=== PATIENT | female | born 1990 | race Caucasian/White ===

== ENCOUNTER 2020-06-09 22:34 | Emergency (ER) | payer OTHER, SELFPAY ==
[2020-06-09 22:44] VITALS: BP 132/76; PULSE 89; RESP 17; TEMP 36.6; O2SAT 99; BMI 31.9
--- NOTE | 2020-06-09 22:46 | HMH.EDGENADL ---
ED Disposition Clinical Impression: Ankle contusion Qualifiers: Encounter type: initial encounter Laterality: left Qualified Code(s): S90.02XA - Contusion of left ankle, initial encounter Disposition: Home, Self-Care Condition on Discharge: Good Instructions: How to Prevent Falls Additional Instructions: Weight-bear as tolerated. Please use crutches over the next several days and remain in Angel wrap. Remove Angel wrap to bathe but then immediately reapply over the next 48 to 72 hours. Use ice, NSAIDs, and rest. Return immediately if any motor or sensory deficits in left ankle/foot, worsening pain, change in skin color in left lower extremity/foot, or other new concerning symptoms prior to following up with your primary care doctor for recheck within several days. Referrals: PCP,No [Primary Care Provider] - - Critical Care Critical Care Time: No Attestation: On , the high probability of a clinically significant, sudden or life threatening deterioration of the following system(s) required my full and direct attention, intervention and personal management. The time I documented below is in addition to time spent performing reported procedures but includes the following listed in this critical care notation. Medical Decision Making - Medical Records Medical records reviewed: Yes: I reviewed the patient's medical records. - Nils Inquiry Pt receiving controlled substance: No Vital Signs: 06/09/20 22:44 Temperature 97.9 F Temperature Source Oral Pulse Rate [Right Brachial] 89 Respiratory Rate 17 Blood Pressure [Right Arm] 132/76 Blood Pressure Mean [Right Arm] 94 Blood Pressure Source [Right Arm] Automatic Cuff Blood Pressure Position [Right Arm] Sitting 02 Sat by Pulse Oximetry 99 Oxygen Delivery Method Room Air Orders (Tests/Meds): ED MEDICATIONS Discontinued Medications Generic Name Dose Route Start Last Admin Trade Name Freq PRN Reason Stop Dose Admin Ibuprofen 600 mg 06/09/20 22:57 06/09/20 22:57 Ibuprofen 600 Mg Tablet PO 06/09/20 22:58 600 mg ONCE ONE Administration ORDERS Category Date Time Status Foot XR left minimum 3 views [XR foot LT min 3V] Stat Exams 06/09/20 22:49 Ordered XR tibia fibula LT 2V Stat Exams 06/09/20 22:49 Ordered Medical Decision Narrative: Patient presents with left lower leg/ankle complaint. She does have some pain on palpation of her left ankle. She is neurovascular intact without any breaks in the skin on arrival. Differential diagnosis does include soft tissue injury versus ankle fracture versus lower leg fracture versus foot fracture. At this time, radiographs indicated to ensure no bony abnormality. X-ray negative for any Maisonneuve type injury, Nguyen fracture, or obvious Lisfranc type injury. I also see no other acute bony abnormalities. At this time, patient's presentation is consistent with soft tissue injury. Patient's ankle Angel wrapped here in the ER and crutches given. Also instructed to use ice, NSAIDs, and rest over the next several days. She agrees. She will return if worsening pain, change in quality/character pain, any motor/sensory deficits in her left foot/ankle, or other new concerning symptoms. Otherwise, she will follow up with her primary care doctor for routine check. Assessment: Left ankle injury status post fall Disposition: Home with follow-up on crutches with Angel wrap General Adult HPI - General Stated complaint: AO fell [id number] possible broken L foot Time Seen by Provider: 06/09/20 22:50 - History of Present Illness HPI narrative: Patient healthy 30-year-old female presenting with left lower leg complaint. Patient states about 45 minutes ago she was walking through a graveyard. She was spooked and accidentally tripped and fell. She believes she turned her ankle and immediately suffered a pain to her left lower leg as well as her left foot. She was able to get up but felt hobbled afterwards and did hav
--- NOTE | 2020-06-09 22:49 | XR_ITS ---
PROCEDURE: XR FOOT LT MIN 3V CLINICAL INDICATION: fall Pain COMPARISON: No exams were available for comparison FINDINGS: There is a nondisplaced transverse fracture involving the base of the 2nd metatarsal. There appears to be normal relationship at the 2nd metatarsal tarsal junction with no widening of the 1st intermetatarsal space. The joint spaces are well-preserved. No significant degenerative/arthritic changes. No erosive changes evident. Other findings:None. IMPRESSION: Nondisplaced fracture base of 2nd metatarsal Dictated by: Sebastian Jauregui MD 06/10/2020 07:04 Sebastian Jauregui MD in [place] 06/10/2020 07:04
--- NOTE | 2020-06-09 22:49 | XR_ITS ---
PROCEDURE: XR TIBIA FIBULA LT 2V CLINICAL INDICATION: fall Pain COMPARISON: No exams were available for comparison FINDINGS: No fracture or dislocation. No lytic or blastic change. There is normal mineralization. The joint spaces are well-preserved. No significant degenerative/arthritic changes. No erosive changes evident. Other findings:None. IMPRESSION: No acute findings. Dictated by: Sebastian Jauregui MD 06/10/2020 07:04 Sebastian Jauregui MD in [place] 06/10/2020 07:04
[2020-06-09 23:24] VITALS: BP 121/70; PULSE 73; RESP 18; TEMP 36.7; O2SAT 98
== END 2020-06-09 23:29 | disposition home or self-care (01) ==
PROVIDERS: Emergency Provider Emergency Medicine
DX: S90.02XA Contusion of left ankle, initial encounter (principal); W01.0XXA Fall on same level from slipping, tripping and stumbling without subsequent striking against object, initial encounter; Y93.01 Activity, walking, marching and hiking; Y92.019 Unspecified place in single-family (private) house as the place of occurrence of the external cause
CPT/HCPCS: 73590; 73630; 99282

== ENCOUNTER 2020-08-27 15:23 | Emergency (ER) | payer OTHER, SELFPAY ==
[2020-08-27 15:39] VITALS: BP 124/89; PULSE 69; RESP 14; TEMP 36.9; O2SAT 99; BMI 31.1
--- NOTE | 2020-08-27 15:52 | HMH.EDUTC ---
[facility] [place] Disposition Clinical Impression: Insect bite Qualifiers: Encounter type: initial encounter Site of insect bite: forearm Laterality: right Qualified Code(s): S50.861A - Insect bite (nonvenomous) of right forearm, initial encounter; W57.XXXA - Bitten or stung by nonvenomous insect and other nonvenomous arthropods, initial encounter Disposition: Home, Self-Care Condition on Discharge: Good Instructions: How to Care for an Insect Bite or Sting, DI for Insect Bites and Stings Additional Instructions: if area worsens or does not improve return follow up with pcp Prescriptions: Sulfamethoxazole/Trimethoprim [Bactrim DS tablet] 1 each PO BID 10 Days #20 tab [email or web address] Referrals: PCP,No [Primary Care Provider] - Time of Disposition: 16:23 Medical Decision Making - Nils Inquiry Pt receiving controlled substance: No Vital Signs: 08/27/20 15:39 Temperature 98.4 F Temperature Source Oral Pulse Rate [Right] 69 Respiratory Rate 14 Blood Pressure [Right Arm] 124/89 Blood Pressure Mean [Right Arm] 100 02 Sat by Pulse Oximetry 99 [facility] [place] HPI - General Chief complaint: Urgent Treatment Center Stated complaint: AO 08/26 spidler bite R Arm Time Seen by Provider: 08/27/20 15:54 Mode of Arrival: Ambulatory Source of Information: Patient Limitations: No Limitations Description of Symptoms (Recalled from Triage Doc. by RN): pt has a spider bite on her R arm and is now having numbness. HEENT Symptoms (Recalled from RN notes): No Resp Symptoms (Recalled from RN notes): No Skin Symptoms (Recalled from RN notes): Yes (R arm numbness around spider bite) MS Symptoms (Recalled from RN notes): No Functional Status (Recalled from RN notes): na - History of Present Illness Provider Complaint: 30 yr old female presents for a spider bite to rt arm. Pt states area is ed swollen and feels numb. Pt states she noticed area last pm - Related Data Previous Rx's Medication Instructions Recorded Sulfamethoxazole/Trimethoprim 1 each PO BID 10 Days #20 tab 08/27/20 [Bactrim DS tablet] Allergies Allergy/AdvReac Type Severity Reaction Status Date / Time No Known Allergies Allergy Verified 08/27/20 15:47 - Worker's Comp Is this a Worker's Comp case?: No [facility] History - Hepatitis A Screen Drug use history?: No High risk sexual behaviors?: No History of sexually transmitted infection?: No Currently employed?: No Childcare worker?: No Do you have indoor plumbing?: Yes Do you have electricity?: Yes Attestation statement:: This patient has been screened for Hepatitis A risk factors. I have reviewed the patient's past medical history: Yes ROS Obtained: Yes Systems reviewed as appropriate & no additional complaints - Constitutional Constitutional: Reports system reviewed and no additional complaints, except as docu, Denies body ache - Eyes Eyes: Reports system reviewed and no additional complaints, except as docu, Denies change in vision - ENT Ears, Nose, Mouth, and Throat: Reports system reviewed and no additional complaints, except as docu, Denies sore throat - Cardiovascular Cardiovascular: Reports system reviewed and no additional complaints, except as docu, Denies chest pain - Respiratory Respiratory: Reports system reviewed and no additional complaints, except as docu, Denies cough - Gastrointestinal Gastrointestingal: Reports: system reviewed and no additional complaints, except as docu. Denies: nausea, vomiting - Genitourinary Female Genitourinary: Reports system reviewed and no additional complaints, except as docu, Denies hematuria - Musculoskeletal Musculoskeletal: Reports system reviewed and no additional complaints, except as docu - Integumentary/Breasts Skin/Breast: Reports system reviewed and no additional complaints, except as docu, Reports as per HPI, Reports wounds - Neurologic Neurologic: Reports system reviewed and no additional complain
[2020-08-27 16:26] VITALS: BP 119/87; PULSE 69; RESP 18; TEMP 36.6
== END 2020-08-27 16:26 | disposition home or self-care (01) ==
PROVIDERS: Emergency Provider Nurse Practitioner Family
DX: S50.861A Insect bite (nonvenomous) of right forearm, initial encounter (principal); W57.XXXA Bitten or stung by nonvenomous insect and other nonvenomous arthropods, initial encounter
CPT/HCPCS: 99202; G0463

== ENCOUNTER 2020-09-17 13:39 | Emergency (ER) | payer OTHER, SELFPAY ==
[2020-09-17 13:39] VITALS: BP 117/82; PULSE 59; RESP 14; TEMP 36.9; O2SAT 97; BMI 31.4
--- NOTE | 2020-09-17 14:03 | HMH.EDUTC ---
[facility] [place] Disposition Clinical Impression: Strep throat Disposition: Home, Self-Care Condition on Discharge: Good Instructions: Strep Throat, DI for Strep Throat Additional Instructions: Drink plenty of fluids. Take tylenol or ibuprofen for pain or fever. Take the medications as directed. Follow up with your regular doctor. GO TO THE ER FOR ANY WORSENING SYMPTOMS Prescriptions: Amoxicillin [Amoxicillin 500mg Tab] 500 mg PO TID 10 Days #30 tab Transmission Status: Received by [facility] Benzonatate [Tessalon Perle 100mg Cap] 100 mg PO TIDP PRN #30 cap PRN Reason: Cough Transmission Status: Received by [facility] Referrals: PCP,No [Primary Care Provider] - Time of Disposition: 14:22 Medical Decision Making - Medical Records Medical records reviewed: No: I reviewed the patient's medical records. - Nils Inquiry Pt receiving controlled substance: No Vital Signs: 09/17/20 13:39 09/17/20 14:25 Temperature 98.5 F 98.5 F Temperature Source Oral Oral Pulse Rate 59 L Pulse Rate [Right] 59 L Respiratory Rate 14 14 Blood Pressure 117/82 Blood Pressure [Right Arm] 117/82 Blood Pressure Mean [Right Arm] 93 02 Sat by Pulse Oximetry 97 - Lab Data Lab results reviewed: Yes: I reviewed the patient's lab results. Lab Results 09/17/20 13:43: Strep Scn Rapid Clinic Positive A Orders (Tests/Meds): ORDERS Category Date Time Status Strep Screen Confirmation Stat Micro 09/17/20 13:43 Received [facility] [place] HPI - General Stated complaint: sore throat, cough Time Seen by Provider: 09/17/20 14:03 Description of Symptoms (Recalled from Triage Doc. by RN): pt c/o sore throat, cough, congestion HEENT Symptoms (Recalled from RN notes): Yes Resp Symptoms (Recalled from RN notes): Yes Skin Symptoms (Recalled from RN notes): No MS Symptoms (Recalled from RN notes): No Functional Status (Recalled from RN notes): wnl - History of Present Illness Provider Complaint: She c/o sore throat for the past 3 days. - Related Data Previous Rx's Medication Instructions Recorded Sulfamethoxazole/Trimethoprim 1 each PO BID 10 Days #20 tab 08/27/20 [Bactrim DS tablet] Amoxicillin [Amoxicillin 500mg Tab] 500 mg PO TID 10 Days #30 tab 09/17/20 Benzonatate [Tessalon Perle 100mg 100 mg PO TIDP PRN #30 cap 09/17/20 Cap] Allergies Allergy/AdvReac Type Severity Reaction Status Date / Time No Known Allergies Allergy Verified 08/27/20 15:47 - Worker's Comp Is this a Worker's Comp case?: No [facility] History - Hepatitis A Screen Drug use history?: No High risk sexual behaviors?: No History of sexually transmitted infection?: No Currently employed?: No Childcare worker?: No Do you have indoor plumbing?: Yes Do you have electricity?: Yes Attestation statement:: This patient has been screened for Hepatitis A risk factors. I have reviewed the patient's past medical history: Yes - Social History Alcohol Intake: never Occupational Status: employed ROS Obtained: Yes All systems reviewed & no additional complaints - Constitutional Constitutional: Reports system reviewed and no additional complaints, except as docu - Eyes Eyes: Reports system reviewed and no additional complaints, except as docu - ENT Ears, Nose, Mouth, and Throat: Reports system reviewed and no additional complaints, except as docu - Respiratory Respiratory: Reports system reviewed and no additional complaints, except as docu - Gastrointestinal Gastrointestingal: Reports: system reviewed and no additional complaints, except as docu Physical Exam - General General appearance: alert, in no apparent distress - Head Head exam: atraumatic, normocephalic, normal inspection - Eye Eye exam: Present: normal appearance, PERRL, EOMI - ENT ENT exam: Present: mucous membranes moist, normal external ear exam - Expanded ENT Exam TM/Canal exam: Bilateral TM: erythema, bulging Mouth exam: Prese
[2020-09-17 14:25] VITALS: BP 117/82; PULSE 59; RESP 14; TEMP 36.9; O2SAT 97
[2020-09-17 14:25] LABS: UTC Strep Screen (Rapid) Positive (Negative)
== END 2020-09-17 14:33 | disposition home or self-care (01) ==
PROVIDERS: Emergency Provider Nurse Practitioner Family
DX: J02.0 Streptococcal pharyngitis (principal)
CPT/HCPCS: 87880; 99202; G0463

== ENCOUNTER 2021-01-03 18:11 | Emergency (ER) | payer OTHER, SELFPAY ==
[2021-01-03 19:23] VITALS: BP 118/79; PULSE 81; RESP 17; TEMP 37.2; O2SAT 98; BMI 31.2
--- NOTE | 2021-01-03 19:29 | HMH.EDUTC ---
[facility] [place] Disposition Clinical Impression: Skin sensation disturbance, Left shoulder tendonitis, Strep throat Left shoulder pain Qualifiers: Chronicity: acute Qualified Code(s): M25.512 - Pain in left shoulder Disposition: Home, Self-Care Condition on Discharge: Good Instructions: Tendinopathy Additional Instructions: Rest the extremity, Elevate the extremity as tolerated while you are resting. Take the medications as directed. Follow up with Dr. Orozco (orthopedics). I put in a referral but you need to call his office and schedule an appointment. Follow up with your regular doctor. GO TO THE ER FOR ANY WORSENING SYMPTOMS Prescriptions: methylPREDNISolone [Medrol] 4 mg PO DIRECTED 6 Days #21 tab.ds.pk Transmission Status: Received by [facility] Azithromycin [Z-Antonio 250mg Tab*] 250 mg PO UD DOSE PK #6 tab Transmission Status: Pending to [facility] Referrals: Provider,Referral, MD [Primary Care Provider] - Forms: Work/School Release Time of Disposition: 19:32 Medical Decision Making - Medical Records Medical records reviewed: No: I reviewed the patient's medical records. - Nils Inquiry Pt receiving controlled substance: No Vital Signs: 01/03/21 19:23 01/03/21 19:31 Temperature 99.0 F 99.0 F Temperature Source Oral Pulse Rate 81 Pulse Rate [Left] 81 Respiratory Rate 17 17 Blood Pressure 118/79 Blood Pressure [Right Arm] 118/79 Blood Pressure Mean [Right Arm] 92 02 Sat by Pulse Oximetry 98 - Lab Data Lab results reviewed: Yes: I reviewed the patient's lab results. Lab Results 01/03/21 19:28: Strep Scn Rapid Clinic Positive A 01/03/21 19:28: Urine Color Yellow, Urine Appearance Clear, Urine pH 5.5, Ur Specific Marshall 1.025, Urine Protein Negative, Urine Glucose (UA) Negative, Urine Ketones Trace, Urine Blood Negative, Urine Nitrate Negative, Urine Bilirubin Negative, Urine Urobilinogen 0.2, Ur Leukocyte Esterase Negative Orders (Tests/Meds): ORDERS Category Date Time Status Covid-19 Nasal PCR ([facility]) Routine Lab 01/03/21 19:10 Received Urine Culture Stat Micro 01/03/21 19:09 Received [facility] [place] HPI - General Stated complaint: pain urinating, cough, arm and neck numbness Time Seen by Provider: 01/03/21 19:30 Mode of Arrival: Ambulatory Source of Information: Patient Limitations: No Limitations Description of Symptoms (Recalled from Triage Doc. by RN): BURNING PAIN IN LEFT NECK AND SHOULDER, CHEST COLD AND COUGH AND BLADDER INFECTION HEENT Symptoms (Recalled from RN notes): No Resp Symptoms (Recalled from RN notes): Yes Skin Symptoms (Recalled from RN notes): No MS Symptoms (Recalled from RN notes): Yes Functional Status (Recalled from RN notes): WNL - History of Present Illness Provider Complaint: She c/o left shoulder pain and intermittent numbness. She denies any injury, but reaching over her head triggers her symptoms. She also c/o burning while urinating for the past 2 days. - Related Data Previous Rx's Medication Instructions Recorded Azithromycin [Z-Antonio 250mg Tab*] 250 mg PO UD DOSE PK #6 tab 01/03/21 methylPREDNISolone [Medrol] 4 mg PO DIRECTED 6 Days #21 01/03/21 tab.ds.pk Allergies Allergy/AdvReac Type Severity Reaction Status Date / Time latex Allergy Verified 01/03/21 19:27 - Worker's Comp Is this a Worker's Comp case?: No [facility] History - Hepatitis A Screen Drug use history?: No High risk sexual behaviors?: No History of sexually transmitted infection?: No Currently employed?: No Childcare worker?: No Do you have indoor plumbing?: Yes Do you have electricity?: Yes Attestation statement:: This patient has been screened for Hepatitis A risk factors. I have reviewed the patient's past medical history: Yes - Social History Alcohol Intake: current Occupational Status: other ROS Obtained: Yes All systems reviewed & no additional complaints - Constitutional Constitutional: Reports chills, Denies
[2021-01-03 19:31] VITALS: BP 118/79; PULSE 81; RESP 17; TEMP 37.2; O2SAT 98
[2021-01-03 20:45] LABS: Apearance,Urine Clear (Clear); Color,Urine Yellow (Yellow); Glucose,Urine (UA) Negative (Negative); PH,Urine 5.5 (5.0-8.5); Protein,Urine Negative (Negative); Specific Gravity, Urine 1.025 (1.005-1.030)
[2021-01-03 20:46] LABS: Bilirubin,Urine Negative (Negative); Blood, Urine Negative (Negative); Ketones,Urine TRACE (Negative); UTC Leukocyte Esterase,Urine Negative (Negative); UTC Nitrate,Urine Negative (Negative); Urobilinogen,Urine 0.2 EU/dl (0.2)
[2021-01-03 20:47] LABS: UTC Strep Screen (Rapid) Positive (Negative)
== END 2021-01-03 19:48 | disposition home or self-care (01) ==
PROVIDERS: Emergency Provider Nurse Practitioner Family
DX: M75.02 Adhesive capsulitis of left shoulder (principal); J02.0 Streptococcal pharyngitis; Z20.822 Contact with and (suspected) exposure to COVID-19
CPT/HCPCS: 81003; 87086; 87880; 99203; G0463; U0003

== ENCOUNTER → 2021-01-19 14:38 | Outpatient (CLI) | payer OTHER, SELFPAY ==
--- NOTE | 2021-01-19 14:42 | XR_ITS ---
PROCEDURE: XR SHOULDER LT MIN 2V CLINICAL INDICATION: left shoulder pain COMPARISON: No exams were available for comparison FINDINGS: No obvious fracture. There is mild prominence of the acromioclavicular joint space. This is of questionable clinical significance. No significant degenerative change. No lytic or blastic change. Other findings:None. IMPRESSION: Mild prominence of the AC joint otherwise negative Dictated by: Sebastian Jauregui MD 01/19/2021 16:20 Sebastian Jauregui MD in [place] 01/19/2021 16:20
== END ==
PROVIDERS: Visit Provider Orthopaedic Surgery
DX: M25.512 Pain in left shoulder (principal)
CPT/HCPCS: 73030

== ENCOUNTER 2021-01-27 10:40 | Emergency (ER) | payer OTHER, SELFPAY ==
[2021-01-27 10:41] VITALS: BP 131/78; PULSE 75; RESP 20; TEMP 36.9; O2SAT 98; BMI 30.7
--- NOTE | 2021-01-27 11:51 | HMH.EDUTC ---
[facility] [place] Disposition Clinical Impression: Viral syndrome, Exposure to COVID-19 virus Disposition: Home, Self-Care Condition on Discharge: Good Instructions: DI for Viral Syndrome, DI for COVID-19 (Suspected or Confirmed ), Preventing the Spread of Coronavirus Discharge Instructions Additional Instructions: Drink plenty of fluids. Take tylenol for pain or fever. Return if you begin to have difficulty breathing. Follow up with your regular doctor. GO TO THE ER FOR ANY WORSENING SYMPTOMS Quarantine until you know the results of your covid-19 test. If it is positive, the health department should call you and give you further instructions about your length of Quarantine and other things. Notify your school or workplace of your results and follow their instructions regarding return to work/school. Prescriptions: Brompheniramine/Pseudoephed/Dm [Bromfed Dm Cough Syrup] 5 ml PO Q6HP PRN #240 ml PRN Reason: Cough Transmission Status: Received by [facility] Ondansetron [Zofran 4mg ODT] 4 mg PO Q8HP PRN #12 tab PRN Reason: Nausea Transmission Status: Received by [facility] Referrals: Provider,Referral, [Primary Care Provider] - Forms: Work/School Release Time of Disposition: 11:54 Medical Decision Making - Medical Records Medical records reviewed: No: I reviewed the patient's medical records. - Nils Inquiry Pt receiving controlled substance: No Vital Signs: 01/27/21 10:41 01/27/21 12:10 Temperature 98.5 F 98.5 F Temperature Source Oral Pulse Rate 75 Pulse Rate [Left Radial] 75 Respiratory Rate 20 20 Blood Pressure 131/78 Blood Pressure [Right Arm] 131/78 Blood Pressure Mean [Right Arm] 95 Blood Pressure Source [Right Arm] Automatic Cuff Blood Pressure Position [Right Arm] Sitting 02 Sat by Pulse Oximetry 98 Oxygen Delivery Method Room Air Room Air Orders (Tests/Meds): ORDERS Category Date Time Status Covid-19 Nasal PCR ([facility]) Routine Lab 01/27/21 11:26 Received [facility] [place] HPI - General Stated complaint: covid test/symptoms Time Seen by Provider: 01/27/21 11:51 Mode of Arrival: Ambulatory Source of Information: Patient Limitations: No Limitations Description of Symptoms (Recalled from Triage Doc. by RN): sore throat, cough, ETIENNE for 2 days HEENT Symptoms (Recalled from RN notes): Yes Resp Symptoms (Recalled from RN notes): Yes (cough) Skin Symptoms (Recalled from RN notes): No MS Symptoms (Recalled from RN notes): No Functional Status (Recalled from RN notes): wnl - History of Present Illness Provider Complaint: She states that for the past 2 days she has had a cough, chest congestion, body aches and she has felt bad. She has not been vaccinated against covid. She denies any sore throat. - Related Data Previous Rx's Medication Instructions Recorded Azithromycin [Z-Antonio 250mg Tab*] 250 mg PO UD DOSE PK #6 tab 01/03/21 methylPREDNISolone [Medrol] 4 mg PO DIRECTED 6 Days #21 01/03/21 tab.ds.pk Brompheniramine/Pseudoephed/Dm 5 ml PO Q6HP PRN #240 ml 01/27/21 [Bromfed Dm Cough Syrup] Ondansetron [Zofran 4mg ODT] 4 mg PO Q8HP PRN #12 tab 01/27/21 Allergies Allergy/AdvReac Type Severity Reaction Status Date / Time latex Allergy Verified 01/03/21 19:27 - Worker's Comp Is this a Worker's Comp case?: No [facility] History - Hepatitis A Screen Drug use history?: No High risk sexual behaviors?: No History of sexually transmitted infection?: No Currently employed?: No Childcare worker?: No Do you have indoor plumbing?: Yes Do you have electricity?: Yes Attestation statement:: This patient has been screened for Hepatitis A risk factors. I have reviewed the patient's past medical history: Yes - Social History Smoking Status: Never smoker Alcohol Intake: never Occupational Status: other ROS Obtained: Yes All systems reviewed & no additional complaints - Constitutional Constitutional: Reports as per HPI - Eyes Eyes
[2021-01-27 12:10] VITALS: BP 131/78; PULSE 75; RESP 20; TEMP 36.9; O2SAT 98
--- NOTE | 2021-01-28 10:05 | PC.NURSE ---
PATIENT NOTIFIED OF POSITIVE COVID TEST AT THIS TIME
== END 2021-01-27 12:10 | disposition home or self-care (01) ==
PROVIDERS: Emergency Provider Nurse Practitioner Family
DX: U07.1 COVID-19 (principal)
CPT/HCPCS: 99202; G0463; U0003

== ENCOUNTER 2021-02-21 19:06 | Emergency (ER) | payer OTHER, SELFPAY ==
[2021-02-21 20:14] VITALS: BP 141/77; PULSE 63; RESP 18; TEMP 37; O2SAT 100; BMI 26.7
--- NOTE | 2021-02-21 21:12 | HMH.EDUTC ---
[facility] [place]ression: Left shoulder tendonitis Disposition: Home, Self-Care Condition on Discharge: Good Instructions: Tendonitis (Alternative Therapy), DI for Tendinitis, Etodolac Additional Instructions: Take medication as prescribed Follow up with your Family Doctor if needed Follow up with Dr Orozco for further treatment and evaluation Follow up with Neurology as scheduled Return if needed Straight to ER if any life threatening symptoms Prescriptions: Etodolac 200 mg PO Q8HP PRN #12 cap PRN Reason: Moderate Pain Transmission Status: Received by [id number] Referrals: Provider,Referral, MD [Primary Care Provider] - As needed Forms: Work/School Release Time of Disposition: 21:21 Medical Decision Making - Nils Inquiry Pt receiving controlled substance: No Nils was queried for this patient: No Vital Signs: 02/21/21 20:14 02/21/21 21:36 Temperature 98.6 F 98.6 F Temperature Source Oral Pulse Rate 63 Pulse Rate [Left] 63 Respiratory Rate 18 18 Blood Pressure 141/77 H Blood Pressure [Right Arm] 141/77 H Blood Pressure Mean [Right Arm] 98 02 Sat by Pulse Oximetry 100 - Lab Data Lab Results 02/21/21 21:10: [facility] Negative Orders (Tests/Meds): ED MEDICATIONS Discontinued Medications Generic Name Dose Route Start Last Admin Trade Name Freq PRN Reason Stop Dose Admin Ketorolac Tromethamine 60 mg 02/21/21 21:20 02/21/21 21:30 Ketorolac 60mg/2ml Vial IM 02/21/21 21:21 60 mg ONCE ONE Administration Methylprednisolone Sodium Succinate 125 mg 02/21/21 21:20 02/21/21 21:29 Methylprednisolone Sod Succ 125mg Vial IM 02/21/21 21:21 125 mg ONCE ONE Administration [facility] [place] - General Stated complaint: plain left shoulder Time Seen by Provider: 02/21/21 21:12 Mode of Arrival: Ambulatory Source of Information: Patient Limitations: No Limitations Description of Symptoms (Recalled from Triage Doc. by RN): pt c/o L shoulder and elbow pain. pt had PT yesterday, shes seeing Dr. Orozco and has a neurology appointment coming up. pt states the pain is not getting any better. HEENT Symptoms (Recalled from RN notes): No Resp Symptoms (Recalled from RN notes): No Skin Symptoms (Recalled from RN notes): No MS Symptoms (Recalled from RN notes): Yes (L shoulder/elbow pain) Functional Status (Recalled from RN notes): na - History of Present Illness Provider Complaint: Patient states that she hurt her shoulder at work awhile back and was seen and referred to Dr Orozco States that seen him and he dx her with tendonitis and bursitis and had her in physical therapy and she is scheduled to see neurology next week States that yesterday at physical therapy she thinks she may have over did it and has been having worsening of pain in arm ever since State that she has pain when she tries to raise her arm and she took Motrin this moring but it didnt help so this evening when it was still hurting she came in to see if there is something she can get to help with the pain - Related Data Previous Rx's Medication Instructions Recorded Etodolac 200 mg PO Q8HP PRN #12 cap 02/21/21 Allergies Allergy/AdvReac Type Severity Reaction Status Date / Time latex Allergy Verified 02/07/21 09:03 - Worker's Comp Is this a Worker's Comp case?: No [facility] History - Hepatitis A Screen Drug use history?: No High risk sexual behaviors?: No History of sexually transmitted infection?: No Currently employed?: No Childcare worker?: No Do you have indoor plumbing?: Yes Do you have electricity?: Yes Attestation statement:: This patient has been screened for Hepatitis A risk factors. I have reviewed the patient's past medical history: Yes Other Surgeries: Yes: No Previous Surgery - Social History Smoking Status: Never smoker Alcohol Intake: never Occupational Status: other ROS Obtained: Yes All systems reviewed & no additional complaints, Yes System
[2021-02-21 21:23] LABS: UTC Pregnancy Test, Urine Negative (Negative)
[2021-02-21 21:36] VITALS: BP 141/77; PULSE 63; RESP 18; TEMP 37
== END 2021-02-21 21:38 | disposition home or self-care (01) ==
PROVIDERS: Emergency Provider Nurse Practitioner
DX: M70.812 Other soft tissue disorders related to use, overuse and pressure, left shoulder (principal)
CPT/HCPCS: 81025; 96372; 99202; G0463

== ENCOUNTER 2021-02-24 10:00 | Outpatient (RCR) | payer OTHER, SELFPAY ==
--- NOTE | 2021-02-09 09:04 | HMH.OTOPEV ---
OT Inpatient Evaluation Rehab OT Outpatient Eval Start: 02/09/21 08:31 Freq: Status: Active Protocol: Document 02/09/21 08:32 MARKELKURTIS (Rec: 02/09/21 09:01 EMILYCIELO [id number]) Electronically Signed By Raegan Allen OT 02/09/21 08:32 Outpatient Therapy Subjective History Subjective History 30 year old female referred to skilled OP OT services for L shoulder pain. Patient verbalize having left shoulder pain for the past 5-6 weeks and has affected her job performance. 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 X-ray completed on revealed no acute findings. Ortho dx patient 1. Chronic left shoulder pain 2. Scapulothoracic bursitis of left shoulder 3. Biceps tendinitis of left shoulder 4. Carpal tunnel syndrome of left wrist Chief Complaint Pain,Weakness Symptom Type Ache,Throb,Tingling Symptoms Relieved By OTC Meds Symptoms Aggravated By Physical Activity Prior Functional Limitations None Current Functional Limitations Reaching,Lifting,Recreation Activity Symptom Description Constant and Continuous Level of pain today (0-10) 4 Pain scale - at its best (0-10) 4 Pain scale - at its worst (0-10) 10 Shoulder/Elbow Eval Shoulder Objective Measurements Shoulder ROM Left Shoulder Abduction Active Range of 90 Motion (degrees) Shoulder Flexion Active Range of Motion 140 (degrees) Query Text: Shoulder External Rotation Active Range 65 of Motion (degrees) Shoulder Internal Rotation Active Range 60 of Motion (degrees) pain with active ROM shoulder exam left standard Shoulder MMT Shoulder Extension Strength Grade 3- Fair- Shoulder Flexion Strength Grade 3- Fair- Shoulder Horizontal Abduction Strength 3- Fair- Grade Infraspinatus/Teres Minor Strength Grade 3- Fair- Shoulder External Rotation Strength 3- Fair- Grade Shoulder Internal Rotation Strength 3- Fair- Grade Elbow Objective Measurements OT Outpatient Assessm
== END 2021-02-24 10:05 | disposition home or self-care (01) ==
LOC: OT 10:00
PROVIDERS: PCP Orthopaedic Surgery; Visit Provider Orthopaedic Surgery
DX: M25.512 Pain in left shoulder (principal); G89.29 Other chronic pain; M75.52 Bursitis of left shoulder; M75.22 Bicipital tendinitis, left shoulder
CPT/HCPCS: 97014; 97035; 97140; 97165; 97530; G0283

== ENCOUNTER 2021-03-19 07:24 | Emergency (ER) | payer OTHER, SELFPAY ==
--- NOTE | 2021-03-19 07:23 | ECG_ITS ---
APPROVED REPORT Exam: Resting ECG HR:90 bpm ECG Measurements Heart Rate 90 AXES DE 150 P 74 QRSd 84 QRS 68 QT 348 T 52 QTc 425 Conclusion Normal sinus rhythm Normal ECG Electronically signed by : Isra Claudio MD 03/19/2021 20:30:05
[2021-03-19 07:25] VITALS: BP 126/90; PULSE 98; RESP 16; TEMP 36.8; O2SAT 98; BMI 28.7
--- NOTE | 2021-03-19 07:27 | XR_ITS ---
PROCEDURE INFORMATION: Exam: XR Chest Exam date and time: 03/19/2021 7:27 AM Age: 30 years old Clinical indication: Pain; Chest pressure; Additional info: Chest pain, has nipple rings can not remove TECHNIQUE: Imaging protocol: XR of the chest. Views: 2 views. COMPARISON: CR XR SHOULDER LT MIN 2V 01/19/2021 2:44 PM FINDINGS: Lungs: No focal airspace disease. Pleural spaces: Unremarkable. No pleural effusion. No pneumothorax. Heart/Mediastinum: Cardiomediastinal silhouette is within normal limits. Bones/joints: Unremarkable. IMPRESSION: No acute cardiopulmonary abnormality.
[2021-03-19 07:42] LABS: Basophils % 0.6 % (0.1-2.0); Eosinophils # 0.1 K/mm3 (0.0-0.4); Eosinophils % 0.9 % (0.1-12.0); Hematocrit 36.2 % (37.0-47.0); Hemoglobin 11.4 g/dL (12.2-16.2); Lymphocytes # 1.2 K/mm3 (0.7-4.5); Mean Corpuscular HGB Conc 31.5 g/dL (31.8-35.4); Mean Corpuscular Hemoglobin 25.7 pg (27.0-31.2); Mean Corpuscular Volume 81.8 fl (81-99); Mean Platelet Volume 8.9 fl (7.4-10.4); Monocytes # 0.2 K/mm3 (0.1-1.0); Monocytes % 3.6 % (1.7-9.3); Neutrophils # 3.8 K/mm3 (1.8-7.8); Neutrophils % 72.9 % (37.0-80.0); Platelet Count 512 K/mm3 (142-424); Red Blood Count 4.42 M/mm3 (4.20-5.40); Red Cell Distribution Width 14.8 % (11.5-17.5); White Blood Count 5.3 K/mm3 (4.8-10.8)
[2021-03-19 07:47] LABS: Chloride 109 mmol/L (98-107); Sodium 146 mmol/L (136-145)
[2021-03-19 07:48] LABS: Potassium 3.8 mmoL/L (3.5-5.1)
[2021-03-19 07:50] LABS: Blood Urea Nitrogen 5 mg/dl (7-17); Creatinine Clearance Estimated 172 mL/min (50-200); Estimated Glomerular Filt Rate 144 ml/min (>60); GFR (African American) 174 ML/MIN (>60); HCG Qualitative, Serum Negative (Negative)
[2021-03-19 07:51] LABS: Anion Gap 17.8 mEq/L (5-15); Calcium 9.8 mg/dl (8.4-10.2); Carbon Dioxide 23 mmol/L (22.0-30.0); Glucose 103 mg/dl (74-100)
[2021-03-19 08:05] LABS: Troponin I < 0.01 ng/ml (0.00-0.034)
--- NOTE | 2021-03-19 08:18 | HMH.EDCP ---
ED Disposition Clinical Impression: Atypical chest pain Disposition: Home, Self-Care Condition on Discharge: Good Instructions: DI for Atypical Chest Pain Additional Instructions: You were evaluated in the emergency department today for chest pain, and there is no need for further emergent evaluation at this time. Exact cause of symptoms is unclear, may be related to anxiety but I do recommend follow-up with your PCP in the next 3 to 5 days for monitoring of any persistent symptoms and coordination of ongoing care needs. Return to the emergency department without hesitation with any new or worsening symptoms. Referrals: Provider,Referral, [Primary Care Provider] - - Critical Care Critical Care Time: No Attestation: On 03/19/21, the high probability of a clinically significant, sudden or life threatening deterioration of the following system(s) required my full and direct attention, intervention and personal management. The time I documented below is in addition to time spent performing reported procedures but includes the following listed in this critical care notation. Medical Decision Making - Nils Inquiry Pt receiving controlled substance: No Vital Signs: 03/19/21 07:25 Temperature 98.2 F Temperature Source Oral Pulse Rate [Radial] 98 H Respiratory Rate 16 Blood Pressure [Right Arm] 126/90 Blood Pressure Mean [Right Arm] 102 Blood Pressure Position [Right Arm] Sitting 02 Sat by Pulse Oximetry 98 Oxygen Delivery Method Room Air - Lab Data Lab Results 03/19/21 07:30: WBC 5.3, RBC 4.42, Hgb 11.4 L, Hct 36.2 L, MCV 81.8, MCH 25.7 L, MCHC 31.5 L, RDW 14.8, Plt Count 512 H, MPV 8.9, Neut % (Auto) 72.9, Lymph % (Auto) 22.0, [place] % (Auto) 3.6, Eos % (Auto) 0.9, Baso % (Auto) 0.6, Neut # (Auto) 3.8, Lymph # (Auto) 1.2, [place] # (Auto) 0.2, Eos # (Auto) 0.1, Baso # (Auto) 0.0 03/19/21 07:30: Sodium 146 H, Potassium 3.8, Chloride 109 H, Carbon Dioxide 23, Anion Gap 17.8 H, BUN 5 L, Creatinine 0.50 L, Estimated Creat Clear 172, Estimated GFR 144, Est GFR ( Amer) 174, Glucose 103 H, Calcium 9.8, Troponin I < 0.01 03/19/21 07:30: Serum HCG, Qual Negative Result diagrams: 03/19/21 07:30 03/19/21 07:30 Orders (Tests/Meds): ED MEDICATIONS Discontinued Medications Generic Name Dose Route Start Last Admin Trade Name Anderson PRN Reason Stop Dose Admin Aspirin 324 mg 03/19/21 07:27 03/19/21 08:01 Aspirin 81mg Chewable Tablet PO 03/19/21 07:28 324 mg ONCE ONE Administration ORDERS Category Date Time Status Troponin I Q3H Lab 03/19/21 10:30 Ordered Troponin I Q3H Lab 03/19/21 13:30 Ordered Medical Decision Narrative: In summary, the patient is a 30-year-old female with a past medical history of anxiety and prediabetes who presents for evaluation of atypical chest pain. She is in no acute distress, afebrile and hemodynamically stable, not in appearance. Physical exam demonstrates an anxious but comfortable appearing female with normal cardiopulmonary exam, soft nontender abdomen, normal neurologic exam, remainder physical exam within normal limits. Differential diagnosis includes but is not limited to acute coronary syndrome, pneumothorax, electrolyte abnormality, pulmonary embolism. Patient is low risk by Wells score for pulmonary embolism, and PERC negative so no further testing for pulmonary embolism is required at this time. Will obtain basic laboratory analysis as well as troponin, chest x-ray and reassess clinically. Reassessment: Patient continues to be in no acute distress and hemodynamically stable. Timeline of symptom onset was reviewed with the patient, and she is clear that her symptoms began greater than 3 hours prior to arrival at this emergency department. Initial troponin is undetectable and laboratory analysis demonstrates mild anemia, mild hyponatremia but is otherwise unremarkable and nonactionable. These results were communicated with the patient. It was ex
[2021-03-19 08:35] VITALS: BP 123/77; PULSE 77; RESP 16; TEMP 36.6; O2SAT 98
[2021-03-19 08:40] VITALS: BP 126/90; PULSE 98; RESP 16; TEMP 36.8; O2SAT 98
== END 2021-03-19 08:41 | disposition home or self-care (01) ==
PROVIDERS: Emergency Provider Emergency Medicine
DX: R07.89 Other chest pain (principal); R06.02 Shortness of breath; R11.0 Nausea; Z91.040 Latex allergy status
CPT/HCPCS: 71046; 80048; 84484; 84703; 85025; 93005; 99283

== ENCOUNTER → 2021-04-13 16:46 | Outpatient (CLI) | payer OTHER, SELFPAY ==
--- NOTE | 2021-04-13 16:46 | MR_ITS ---
PROCEDURE INFORMATION: Exam: MR Left Upper Extremity Joint Without Contrast; Shoulder Exam date and time: 04/13/2021 4:46 PM Age: 31 years old Clinical indication: Pain; Shoulder; Left; Additional info: Left shoulder pain, evaluate for rotator cuff tear. Numbness and tingling lt shoulder [id number]. No injury or trauma. Weakness in arm. TECHNIQUE: Imaging protocol: MR of the Left upper extremity without contrast. Exam focused on the shoulder. COMPARISON: CR XR SHOULDER LT MIN 2V 01/19/2021 2:44 PM FINDINGS: Limitations: Motion artifact. Bones and cartilage: Mild edema involves the clavicular head. The acromioclavicular joint is appropriately aligned. There is no acute fracture or dislocation. No aggressive bone lesions are present. Joint spaces: A normal amount of fluid is present in the glenohumeral joint. Glenoid labrum: Unremarkable. No evidence of tear. Supraspinatus tendon: Unremarkable. No evidence of tear. Infraspinatus tendon: Unremarkable. No evidence of tear. Subscapularis tendon: Unremarkable. No evidence of tear. Teres minor tendon: Unremarkable. No evidence of tear. Tendon of biceps brachii: Unremarkable. No evidence of tear. Glenohumeral ligaments: Unremarkable. Muscles: The rotator cuff musculature demonstrates no significant edema or atrophy. Soft tissues: Mild soft tissue edema surrounds the acromioclavicular joint. IMPRESSION: 1. Mild edema involving the clavicular head and mild soft tissue edema surrounding the appropriately aligned acromioclavicular joint of uncertain clinical significance. 2. No rotator cuff tear.
== END ==
PROVIDERS: Visit Provider Orthopaedic Surgery
DX: M25.512 Pain in left shoulder (principal); G89.29 Other chronic pain
CPT/HCPCS: 73221

== ENCOUNTER → 2021-05-23 18:16 | Outpatient (CLI) | payer OTHER, SELFPAY ==
[2021-05-23 20:05] LABS: Anion Gap 15.3 mEq/L (5-15); Blood Urea Nitrogen 10 mg/dl (7-17); Calcium 9.3 mg/dl (8.4-10.2); Carbon Dioxide 24 mmol/L (22.0-30.0); Chloride 102 mmol/L (98-107); Estimated Glomerular Filt Rate 116 ml/min (>60); GFR (African American) 140 ML/MIN (>60); Glucose 81 mg/dl (74-100); Potassium 4.3 mmoL/L (3.5-5.1); Sodium 137 mmol/L (136-145)
[2021-05-23 21:44] LABS: Hemoglobin A1C 5.5 % (4.0-6.0)
== END ==
PROVIDERS: Visit Provider Family Medicine
DX: R73.03 Prediabetes (principal)
CPT/HCPCS: 80048; 83036

== ENCOUNTER → 2021-06-13 11:30 | Outpatient (CLI) | payer OTHER, SELFPAY | PROVIDERS: PCP Family Medicine; Visit Provider Nurse Practitioner | DX: Z20.822 Contact with and (suspected) exposure to COVID-19 (principal) | CPT/HCPCS: C9803; U0003; U0005 ==

== ENCOUNTER 2021-06-21 15:24 | Emergency (ER) | payer OTHER, SELFPAY ==
[2021-06-21 15:25] VITALS: BP 110/75; PULSE 65; RESP 18; TEMP 36.8; O2SAT 100; BMI 32.9
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
[2021-06-21 17:46] VITALS: BP 122/61; PULSE 63; RESP 20; TEMP 36.8; O2SAT 100
== END 2021-06-21 17:46 | disposition home or self-care (01) ==
PROVIDERS: Emergency Provider Emergency Medicine; PCP Family Medicine
DX: S02.2XXA Fracture of nasal bones, initial encounter for closed fracture (principal); W22.8XXA Striking against or struck by other objects, initial encounter; Y92.89 Other specified places as the place of occurrence of the external cause; Y99.8 Other external cause status; F41.8 Other specified anxiety disorders; M79.7 Fibromyalgia
CPT/HCPCS: 70450; 70486; 72125; 99282

== ENCOUNTER 2021-08-17 12:23 | Emergency (ER) | payer OTHER, SELFPAY ==
[2021-08-17 14:00] VITALS: BP 113/70; PULSE 71; RESP 18; TEMP 36.8; O2SAT 98; BMI 26.4
[2021-08-17 14:31] VITALS: BP 113/70; PULSE 71; RESP 18; TEMP 36.8; O2SAT 98
[2021-08-17 14:42] LABS: Strep Scrn Group A (Rapid) Positive (Negative)
--- NOTE | 2021-08-17 15:06 | HMH.EDUTC ---
[facility] [place]: Strep [place] Disposition: Home, Self-Care Condition on Discharge: Good Instructions: DI for Strep Throat, Strep Throat, Amoxicillin Additional Instructions: *Monitor Temp, Over the counter Motrin or Tylenol as directed/as needed Tylenol every 4 hours and Motrin every 6 hours (as long as your family doctor has told you that you can take it) for fever or pain. and straight to ER if unable to lower temp less than 101.0 after medication given *Warm salt water gargles may help to soothe the throat *Throat Lozenges *Warm fluids like tea with honey may help to soothe the throat *Sleep elevated *Humidifier/Vaporizer *If you did not take Penicillin shot or was unable to, start taking antibiotic immediately and make sure that you take it for the FULL length of time although you should start to feel better in 24-48 hours *change toothbrush and toothpaste 24-48 hours after starting to take antibiotics so you do not reinfect yourself Monitor Temp. Tylenol and/or Ibuprofen as needed. ER if fever is no less than 101 despite alternating Tylenol and Ibuprofen * Encourage fluids, water, Gatorade, powerade, pedialyte if /toddler/or child *Cold fluids, popsicles and ice cream may feel good on his throat Follow up IMMEDIATELY for new or worsening symptoms or no Noticeable improvement over the next 48-72 hours. 911 for difficulty breathing or swallowing Prescriptions: Amoxicillin [Amoxicillin 500mg Cap] 500 mg PO BID 10 Days #20 cap Transmission Status: Pending to [id number] Referrals: Chai Ely MD [Primary Care Provider] - As needed Forms: Work/School Release Time of Disposition: 15:08 Medical Decision Making - Nils Inquiry Pt receiving controlled substance: No Nils was queried for this patient: No Vital Signs: 08/17/21 14:00 08/17/21 14:31 Temperature 98.3 F 98.3 F Temperature Source Oral Pulse Rate 71 Pulse Rate [Left Brachial] 71 Respiratory Rate 18 18 Blood Pressure 113/70 Blood Pressure [Left Arm] 113/70 Blood Pressure Mean [Left Arm] 84 Blood Pressure Source [Left Arm] Automatic Cuff Blood Pressure Position [Left Arm] Sitting 02 Sat by Pulse Oximetry 98 Oxygen Delivery Method Room Air - Lab Data Lab results reviewed: Yes: I reviewed the patient's lab results. Lab Results 08/17/21 14:00: Group A Strep Rapid Positive A [facility] [place] - General Stated complaint: cough, congestion, sore throat Time Seen by Provider: 08/17/21 15:06 Mode of Arrival: Ambulatory Source of Information: Patient Limitations: No Limitations Description of Symptoms (Recalled from Triage Doc. by RN): PATIENT C/O SORE THROAT, COUGH AND CONGESTION SINCE YESTERDAY HEENT Symptoms (Recalled from RN notes): Yes Resp Symptoms (Recalled from RN notes): No Skin Symptoms (Recalled from RN notes): No MS Symptoms (Recalled from RN notes): No Functional Status (Recalled from RN notes): WNL - History of Present Illness Provider Complaint: Patient states that her girls has been sick and having similar symptoms State sthat she has been having sore throat, cough, and nasal congestion for the last couple of days but worse this morning so she came in to get checked for sterp throat - Related Data Home Medications Medication Instructions Recorded Confirmed Lurasidone HCl [Latuda] 20 mg PO DAILY 08/17/21 08/17/21 Sertraline HCl [Zoloft] 50 mg PO DAILY 08/17/21 08/17/21 Previous Rx's Medication Instructions Recorded buspirone 15 mg tablet 15 mg PO TID PRN #90 tab 05/23/21 Amoxicillin [Amoxicillin 500mg 500 mg PO BID 10 Days #20 cap 08/17/21 Cap] Allergies Allergy/AdvReac Type Severity Reaction Status Date / Time latex Allergy Verified 07/07/21 15:53 - Worker's Comp Is this a Worker's Comp case?: No [facility] History - Hepatitis A Screen Drug use history?: No High risk sexual behaviors?: No History of sexually transmitted infection?: No Kaila
== END 2021-08-17 15:15 | disposition home or self-care (01) ==
PROVIDERS: Emergency Provider Nurse Practitioner; PCP Family Medicine
DX: J02.0 Streptococcal pharyngitis (principal); B95.0 Streptococcus, group A, as the cause of diseases classified elsewhere; F32.A Depression, unspecified; F41.9 Anxiety disorder, unspecified; Z91.040 Latex allergy status; Z82.49 Family history of ischemic heart disease and other diseases of the circulatory system; Z83.3 Family history of diabetes mellitus; Z80.9 Family history of malignant neoplasm, unspecified
CPT/HCPCS: 87430; 99213; G0463

== ENCOUNTER 2022-01-16 20:05 | Emergency (ER) | payer OTHER, SELFPAY ==
[2022-01-16 20:06] VITALS: BP 114/75; PULSE 72; RESP 18; O2SAT 98; BMI 29.8
--- NOTE | 2022-01-16 21:00 | CT_ITS ---
PROCEDURE INFORMATION: Exam: CT Abdomen And Pelvis With Contrast Exam date and time: 01/16/2022 9:38 PM Age: 31 years old Clinical indication: Abdominal pain; Additional info: Back pain, pelvic pain TECHNIQUE: Imaging protocol: Computed tomography of the abdomen and pelvis with contrast. Radiation optimization: All CT scans at this facility use at least one of these dose optimization techniques: automated exposure control; mA and/or kV adjustment per patient size (includes targeted exams where dose is matched to clinical indication); or iterative reconstruction. Contrast material: ISOVUE; Contrast volume: 75 ml; Contrast route: IV; COMPARISON: CR XR CHEST 2V 03/19/2021 7:27 AM FINDINGS: Liver: Normal. No mass. Gallbladder and bile ducts: Normal. No calcified stones. No ductal dilation. Pancreas: Normal. No ductal dilation. Spleen: Normal. No splenomegaly. Adrenal glands: Normal. No mass. Kidneys and ureters: Normal. No hydronephrosis. Stomach and bowel: Unremarkable. No obstruction. No mucosal thickening. Appendix: No evidence of appendicitis. Intraperitoneal space: Unremarkable. No free air. No significant fluid collection. Vasculature: Unremarkable. No abdominal aortic aneurysm. Lymph nodes: Unremarkable. No enlarged lymph nodes. Urinary bladder: Unremarkable as visualized. Reproductive: Bilateral Essure devices. Bones/joints: Unremarkable. No acute fracture. Soft tissues: Unremarkable. IMPRESSION: No acute findings.
[2022-01-16 21:19] LABS: Microscopic, Urine URINE MICROSCOPIC (MICROSCOPIC)
[2022-01-16 21:24] LABS: Bilirubin,Urine Negative (Negative); Blood, Urine 3+ (Negative); Color,Urine YELLOW (Yellow); Glucose,Urine (UA) Negative (Negative); Ketones,Urine Negative (Negative); Leukocyte Esterase,Urine 2+ (Negative); Nitrate,Urine POSITIVE (Negative); PH,Urine 5.5 (5.0-8.5); Protein,Urine Negative (Negative); Urobilinogen,Urine 0.2 EU/dl (0.2)
[2022-01-16 21:24] LABS: Basophils # 0.1 K/mm3 (0-0.2); Eosinophils # 0.3 K/mm3 (0.0-0.4); Eosinophils % 5.3 % (0.1-12.0); Hematocrit 32.8 % (37.0-47.0); Hemoglobin 10.6 g/dL (12.2-16.2); Lymphocytes # 1.7 K/mm3 (0.7-4.5); Lymphocytes % 28.7 % (10-50); Mean Corpuscular HGB Conc 32.2 g/dL (31.8-35.4); Mean Corpuscular Hemoglobin 26.2 pg (27.0-31.2); Mean Corpuscular Volume 81.5 fl (81-99); Mean Platelet Volume 8.4 fl (7.4-10.4); Monocytes # 0.3 K/mm3 (0.1-1.0); Monocytes % 4.7 % (1.7-9.3); Neutrophils # 3.6 K/mm3 (1.8-7.8); Neutrophils % 60.3 % (37.0-80.0); Platelet Count 478 K/mm3 (142-424); Red Blood Count 4.02 M/mm3 (4.20-5.40); Red Cell Distribution Width 15.9 % (11.5-17.5)
[2022-01-16 21:27] LABS: Urine Pregnancy, HCG Qual. Negative (Negative)
[2022-01-16 21:33] LABS: Alanine Aminotransferase 25 U/L (12-78); Albumin Level 4.4 g/dl (3.5-5.0); Albumin/Globulin Ratio 1.4 (1.1-1.8); Alkaline Phosphatase 69 U/L (38-126); Anion Gap 11.9 mEq/L (5-15); Aspartate Amino Transferase 27 U/L (14-36); Blood Urea Nitrogen 10 mg/dl (7-17); Calcium 9.6 mg/dl (8.4-10.2); Carbon Dioxide 28 mmol/L (22.0-30.0); Chloride 103 mmol/L (98-107); Creatinine Clearance Estimated 131 mL/min (50-200); Estimated Glomerular Filt Rate 97 ml/min (>60); GFR (African American) 117 ML/MIN (>60); Globulin 3.2 g/dL (1.3-3.2); Glucose 87 mg/dl (74-100); Potassium 3.9 mmoL/L (3.5-5.1); Sodium 139 mmol/L (136-145); Total Protein,Serum 7.6 g/dl (6.3-8.2)
[2022-01-16 21:38] LABS: C-Reactive Protein 0.6 mg/L (0-4)
[2022-01-16 21:49] LABS: Bilirubin,Total < 0.1 mg/dl (0.2-1.3); Erythrocyte Sedimentation Rate 15 mm/hr (0-20)
[2022-01-16 21:50] LABS: Appearance,Urine Slightly Cloudy (Clear)
[2022-01-16 21:51] LABS: Procalcitonin 0.066 ng/mL (0.0-2.0)
[2022-01-16 21:52] LABS: Bacteria,Urine 4+ /lpf
[2022-01-16 22:25] VITALS: BP 116/72; PULSE 75; RESP 17; TEMP 36.7; O2SAT 98
--- NOTE | 2022-01-16 22:52 | HMH.EDNVD ---
ED Disposition Clinical Impression: Urinary tract infection Qualifiers: Urinary tract infection type: site unspecified Hematuria presence: without hematuria Qualified Code(s): N39.0 - Urinary tract infection, site not specified Disposition: Home, Self-Care Condition on Discharge: Good Instructions: DI for Urinary Tract Infection (UTI) Additional Instructions: use meds and see pcp for follow up and urine culture Prescriptions: Cefdinir [Omnicef 300mg Capsule] 300 mg PO BID #14 cap Transmission Status: Pending to [id number] Referrals: Chai Ely MD [Primary Care Provider] - - Critical Care Critical Care Time: No Attestation: On 01/16/22, the high probability of a clinically significant, sudden or life threatening deterioration of the following system(s) required my full and direct attention, intervention and personal management. The time I documented below is in addition to time spent performing reported procedures but includes the following listed in this critical care notation. Medical Decision Making - Medical Records Medical records reviewed: Yes: I reviewed the patient's medical records. - Nils Inquiry Pt receiving controlled substance: No Vital Signs: 01/16/22 20:06 01/16/22 22:25 Temperature 98.0 F Temperature Source Oral Pulse Rate 75 Pulse Rate [Right] 72 Respiratory Rate 18 17 Blood Pressure 116/72 Blood Pressure [Right Arm] 114/75 Blood Pressure Mean [Right Arm] 88 Blood Pressure Source [Right Arm] Automatic Cuff 02 Sat by Pulse Oximetry 98 Oxygen Delivery Method Room Air Room Air - Lab Data Lab results reviewed: Yes: I reviewed the patient's lab results. Lab Results 01/16/22 20:30: Urine Color Yellow, Urine Appearance Slightly cloudy, Urine pH 5.5, Ur Specific [place] 1.020, Urine Protein Negative, Urine Glucose (UA) Negative, Urine Ketones Negative, Urine Blood 3+, Urine Nitrate Positive, Urine Bilirubin Negative, Urine Urobilinogen 0.2, Ur Leukocyte Esterase 2+ A, Urine RBC 5-10, Urine WBC 5-10, Ur Squamous Epith Cells 3-5, Urine Bacteria 4+ 01/16/22 20:30: Urine HCG, Qual Negative 01/16/22 21:10: WBC 6.0, RBC 4.02 L, Hgb 10.6 L, Hct 32.8 L, MCV 81.5, MCH 26.2 L, MCHC 32.2, RDW 15.9, Plt Count 478 H, MPV 8.4, Neut % (Auto) 60.3, Lymph % (Auto) 28.7, [place] % (Auto) 4.7, Eos % (Auto) 5.3, Baso % (Auto) 1.0, Neut # (Auto) 3.6, Lymph # (Auto) 1.7, [place] # (Auto) 0.3, Eos # (Auto) 0.3, Baso # (Auto) 0.1, ESR 15 01/16/22 21:10: Sodium 139, Potassium 3.9, Chloride 103, Carbon Dioxide 28, Anion Gap 11.9, BUN 10, Creatinine 0.70, Estimated Creat Clear 131, Estimated GFR 97, Est GFR ( Amer) 117, Glucose 87, Calcium 9.6, Total Bilirubin < 0.1 L, AST 27, ALT 25, Alkaline Phosphatase 69, C-Reactive Protein 0.6, Total Protein 7.6, Albumin 4.4, Globulin 3.2, Albumin/Globulin Ratio 1.4, Procalcitonin 0.066 01/16/22 21:10: Lactate 1.0 Result diagrams: 01/16/22 21:10 01/16/22 21:10 Orders (Tests/Meds): ED MEDICATIONS Generic Name Dose Route Start Last Admin Trade Name Freq PRN Reason Stop Dose Admin Sodium Chloride 1,000 mls @ 999 mls/hr 01/16/22 21:15 01/16/22 21:14 Sod Chlor 0.9% 1000ml Bag IV 01/16/22 22:15 999 mls/hr .Q1H1M MARIAM Administration Ceftriaxone Sodium 1 gm/ 50 mls @ 100 mls/hr 01/16/22 22:00 01/16/22 22:10 Sodium Chloride IV 01/30/22 21:59 100 mls/hr Q24H MARIAM Administration Discontinued Medications Generic Name Dose Route Start Last Admin Trade Name Freq PRN Reason Stop Dose Admin Iopamidol 75 ml 01/16/22 21:47 01/16/22 21:48 Iopamidol-370 (76%);100ml Bottle IV 01/16/22 21:48 75 ml ONCE ONE Administration Ketorolac Tromethamine 30 mg 01/16/22 21:02 01/16/22 21:31 Ketorolac 30mg/Ml Vial IV 01/16/22 21:03 30 mg ONCE ONE Administration Ondansetron HCl 4 mg 01/16/22 21:02 01/16/22 21:31 Ondansetron 4mg/2ml Vial IV 01/16/22 21:03 4 mg ONCE ONE Administration Sodium Chloride 10 ml
== END 2022-01-16 22:57 | disposition home or self-care (01) ==
PROVIDERS: Emergency Provider Emergency Medicine; PCP Family Medicine
DX: N39.0 Urinary tract infection, site not specified (principal); Z79.899 Other long term (current) drug therapy; F41.9 Anxiety disorder, unspecified; F32.A Depression, unspecified
CPT/HCPCS: 74177; 80053; 81001; 81025; 83605; 84145; 85025; 85651; 86140; 87040; 87086; 87088; 87186; 96365; 96367; 96375; 99284; J0696; J2405; Q9967

== ENCOUNTER → 2022-12-26 09:19 | Outpatient (CLI) | payer OTHER, SELFPAY ==
[2022-12-26 17:56] LABS: Basophils % 0.4 % (0.1-2.0); Eosinophils # 0.3 K/mm3 (0.0-0.4); Eosinophils % 7.4 % (0.1-12.0); Hematocrit 33.9 % (37.0-47.0); Hemoglobin 10.3 g/dL (12.2-16.2); Lymphocytes # 1.2 K/mm3 (0.7-4.5); Lymphocytes % 32.6 % (10-50); Mean Corpuscular HGB Conc 30.3 g/dL (31.8-35.4); Mean Corpuscular Hemoglobin 22.7 pg (27.0-31.2); Mean Platelet Volume 9.5 fl (7.4-10.4); Monocytes # 0.2 K/mm3 (0.1-1.0); Monocytes % 4.6 % (1.7-9.3); Neutrophils % 54.9 % (37.0-80.0); Platelet Count 485 K/mm3 (142-424); Red Blood Count 4.52 M/mm3 (4.20-5.40); Red Cell Distribution Width 16.9 % (11.5-17.5); White Blood Count 3.6 K/mm3 (4.8-10.8)
[2022-12-26 17:59] LABS: Alanine Aminotransferase 26 U/L (12-78); Albumin Level 4.3 g/dl (3.5-5.0); Albumin/Globulin Ratio 1.5 (1.1-1.8); Alkaline Phosphatase 65 U/L (38-126); Anion Gap 15.5 mEq/L (5-15); Aspartate Amino Transferase 30 U/L (14-36); Bilirubin,Total 0.2 mg/dl (0.2-1.3); Blood Urea Nitrogen 7 mg/dl (7-17); Carbon Dioxide 22 mmol/L (22.0-30.0); Chloride 108 mmol/L (98-107); Cholesterol 168 mg/dl (140-200); Estimated Glomerular Filt Rate 115 ml/min (>60); GFR (African American) 139 ML/MIN (>60); Globulin 2.9 g/dL (1.3-3.2); Glucose 73 mg/dl (74-100); HDL Cholesterol 24 mg/dl (40-60); Potassium 4.5 mmoL/L (3.5-5.1); Sodium 141 mmol/L (136-145); Total Protein,Serum 7.2 g/dl (6.3-8.2); Triglycerides 101 mg/dl (30-150); VLDL Cholesterol 20 mg/dL (0-40)
[2022-12-26 18:09] LABS: Direct LDL Cholesterol 110.91 mg/dL (100-129)
[2022-12-26 18:16] LABS: 25-OH Vitamin D, Total 35.1 ng/mL (30-100)
[2022-12-26 18:29] LABS: Thyroid Stimulating Hormone 0.44 uIU/mL (0.465-4.68)
[2022-12-28 11:39] LABS: HIV Screen 4th Generation wRfx Non Reactive (Non Reactive)
[2023-01-11 08:39] LABS: Hep A Ab, Total Negative; Hep B Core Ab, Total Negative; Hep B Surface Ab, Qual Non Reactive; Hepatitis B Surface Antigen Negative; Hepatitis C Antibody Non Reactive
== END ==
PROVIDERS: PCP Nurse Practitioner Family; Visit Provider Nurse Practitioner Family
DX: Z00.00 Encounter for general adult medical examination without abnormal findings (principal); F41.9 Anxiety disorder, unspecified; F43.10 Post-traumatic stress disorder, unspecified; E55.9 Vitamin D deficiency, unspecified; Z13.29 Encounter for screening for other suspected endocrine disorder; Z11.59 Encounter for screening for other viral diseases; Z13.220 Encounter for screening for lipoid disorders; Z79.899 Other long term (current) drug therapy
CPT/HCPCS: 80053; 80061; 82306; 84443; 85025; 86703; 86704; 86706; 86708; 87340; 87380; 87522; G0432

== ENCOUNTER 2023-01-13 19:31 | Emergency (ER) | payer OTHER, SELFPAY ==
[2023-01-13 19:33] VITALS: BP 118/74; PULSE 65; RESP 16; TEMP 36.8; O2SAT 100; BMI 28.7
[2023-01-13 20:17] LABS: Strep Scrn Group A (Rapid) Positive (Negative)
[2023-01-13 20:31] LABS: Influenza A, PCR Not Detected (NotDetected); Influenza B, PCR Not Detected (NotDetected)
--- NOTE | 2023-01-13 20:37 | ECG_ITS ---
APPROVED REPORT Exam: Resting ECG HR:58 bpm ECG Measurements Heart Rate 58 AXES VA 181 P 61 QRSd 96 QRS 73 QT 405 T 48 QTc 401 Conclusion SINUS BRADYCARDIA BORDERLINE ECG UNCONFIRMED REPORT Electronically signed by : Isra Claudio MD 01/15/2023 19:46:49
[2023-01-13 20:40] VITALS: BP 112/70; PULSE 61; O2SAT 100
--- NOTE | 2023-01-13 20:42 | XR_ITS ---
PROCEDURE INFORMATION: Exam: XR Chest Exam date and time: 01/13/2023 9:15 PM Age: 32 years old Clinical indication: Cough; Additional info: Congestion TECHNIQUE: Imaging protocol: Radiologic exam of the chest. Views: 1 view. COMPARISON: CR XR CHEST 2V 03/19/2021 7:27 AM FINDINGS: Lungs: Unremarkable. No consolidation. Pleural spaces: Unremarkable. No pleural effusion. No pneumothorax. Heart/Mediastinum: Unremarkable. No cardiomegaly. Bones/joints: Unremarkable. IMPRESSION: No acute pulmonary findings.
--- NOTE | 2023-01-13 20:45 | HMH.EDGENADL ---
Discharge Plan Disposition Patient Disposition: Home, Self-Care Condition: Fair Prescriptions Prescriptions: New penicillin V potassium 500 mg tablet 500 mg PO BID Qty: 20 0RF No Action fluticasone propionate [Flonase Allergy Relief] 50 mcg/actuation spray,suspension 1 spray intranasal DAILY Qty: 16 2RF Rx Instructions: administer into each nostril buspirone 15 mg tablet 15 mg PO TID PRN (Reason: anxiety) Qty: 90 3RF cetirizine [Zyrtec] 10 mg tablet 10 mg PO DAILY Qty: 30 2RF lurasidone 20 mg tablet 20 mg PO DAILY Qty: 90 2RF Rx Instructions: must administer with food (at least 350 calories) sertraline 50 mg tablet 50 mg PO DAILY Qty: 90 3RF Referrals Follow up/Referrals: Frank Bennett APRN [Primary Care Provider] - See instructions Activity Restrictions/Add. Instructions Additional Instructions/Restrictions: At this time is felt you are safe to be discharged home. If new or worsening symptoms please do not hesitate to return the emergency department. Please take medication as prescribed. Please quarantine at home per CDC guidelines. Clinical Impressions Clinical Impression: COVID-19, Strep pharyngitis Discharge ED Provider: Rahul Rose General Adult HPI General Chief complaint: Upper Respiratory Infection Stated complaint: body aches, SOA, feels off Time Seen by Provider: 01/13/23 20:23 Mode of Arrival: Ambulatory Source of Information: Patient Limitations: No Limitations Description of Symptoms (Recalled from ER Triage Doc. by RN): pt reports 4 days of ETIENNE, cough, chest congestion and n/v, reports boyfriends kids have strep History of Present Illness HPI narrative: Patient is a 32-year-old female no pertinent past medical history presents emergency department for evaluation of headache, sore throat cough, chest congestion over the last 4 days. Pain is moderate in intensity, refractory to uifb-crx-[id number] cold preparations. Headache is generalized. Has soreness from cough, denies true chest pain, no other acute complaints at this time Related Data Previous Rx's Medication Instructions Recorded buspirone 15 mg tablet 15 mg PO TID PRN anxiety #90 tabs 10/04/22 fluticasone propionate 50 1 spray intranasal DAILY #16 grams 11/21/22 mcg/actuation nasal spray,suspension (Flonase Allergy Relief) cetirizine 10 mg tablet (Zyrtec) 10 mg PO DAILY #30 tabs 12/26/22 lurasidone 20 mg tablet 20 mg PO DAILY Depression #90 tabs 12/26/22 sertraline 50 mg tablet 50 mg PO DAILY Depression #90 tabs 12/26/22 penicillin V potassium 500 mg 500 mg PO BID #20 tabs 01/13/23 tablet Allergies Allergy/AdvReac Type Severity Reaction Status Date / Time latex Allergy Verified 12/26/22 08:37 [facility] Disclaimer: The information contained in this section may have been updated after the patient was seen, as this information can be updated by other users. Social History Smoking Status: Never smoker second hand exposure: No alcohol intake: never current occupational status: other Travel in the last 8 weeks: None ROS Obtained: Yes Systems reviewed as appropriate & no additional complaints except as documented Physical Exam General General appearance: alert and in no apparent distress Head Head exam: atraumatic and normocephalic Eye Eye exam: Present PERRL and EOMI ENT ENT exam: Present mucous membranes moist and other (Erythematous posterior oropharynx.) Neck Neck exam: Present normal inspection Chest Chest inspection: Present normal inspection and symmetric chest wall rise Respiratory Respiratory exam: Present other (Coarse breath sounds bilaterally); Absent respiratory distress Cardiovascular Cardiovascular exam: Present regular rate and normal rhythm Abdominal Exam Abdominal exam: Present soft; Absent tenderness Extremities Exam Extremities exam: Present normal inspection Neurological Ex
[2023-01-13 20:57] LABS: Coronavirus 19, PCR Detected (NotDetected)
[2023-01-13 21:00] VITALS: BP 125/72; PULSE 63; O2SAT 99
[2023-01-13 21:50] VITALS: BP 124/74; PULSE 61; RESP 16; TEMP 36.8; O2SAT 99
== END 2023-01-13 21:51 | disposition home or self-care (01) ==
PROVIDERS: Emergency Provider Emergency Medicine; PCP Nurse Practitioner Family
DX: U07.1 COVID-19 (principal); J02.0 Streptococcal pharyngitis; R51.9 Headache, unspecified; R06.02 Shortness of breath
CPT/HCPCS: 71045; 87430; 87636; 93005; 99285

== ENCOUNTER → 2023-03-05 10:10 | Outpatient (CLI) | payer OTHER, SELFPAY ==
[2023-03-05 12:56] LABS: Coronavirus 19, PCR Not Detected (NotDetected); Influenza A, PCR Not Detected (NotDetected); Influenza B, PCR Not Detected (NotDetected)
== END ==
PROVIDERS: PCP Emergency Medicine; Visit Provider Emergency Medicine
DX: R52 Pain, unspecified (principal)
CPT/HCPCS: 87636

== ENCOUNTER → 2023-05-02 09:13 | Outpatient (CLI) | payer OTHER, SELFPAY | PROVIDERS: PCP Student in an Organized Health Care Education/Training Program; Visit Provider Student in an Organized Health Care Education/Training Program | DX: Z20.822 Contact with and (suspected) exposure to COVID-19 (principal) | CPT/HCPCS: 87635 ==

== ENCOUNTER 2023-06-05 18:26 | Outpatient (CLI) | payer OTHER, SELFPAY ==
[2023-06-05 18:41] LABS: Adenovirus,PCR Not Detected (NotDetected); Coronavirus 19, PCR Not Detected (NotDetected); Coronavirus 229E Not Detected (NotDetected); Coronavirus NL63 Not Detected (NotDetected); Coronavirus OC43 Not Detected (NotDetected); Coronovirus HKU1,PCR Not Detected (NotDetected); Human Metapneumovirus Not Detected (NotDetected); Influenza A, PCR Not Detected (NotDetected); Influenza AH1, 2009 Not Detected (NotDetected); Influenza AH1, PCR Not Detected (NotDetected); Influenza AH3,PCR Not Detected (NotDetected); Influenza B, PCR Not Detected (NotDetected); Parainfluenza 1, PCR Not Detected (NotDetected); Parainfluenza 2, PCR Not Detected (NotDetected); Parainfluenza 3, PCR Not Detected (NotDetected); Parainfluenza 4, PCR Not Detected (NotDetected); Rhinovirus/Enterovirus Not Detected (NotDetected)
[2023-06-05 23:35] LABS: Respiratory Syncytial Virus Detected (NotDetected)
== END 2023-06-05 23:59 ==
LOC: LAB.DROPOF 18:27
PROVIDERS: PCP Nurse Practitioner Family; Visit Provider Nurse Practitioner Family
DX: J02.9 Acute pharyngitis, unspecified (principal); B97.4 Respiratory syncytial virus as the cause of diseases classified elsewhere
CPT/HCPCS: 87070; 87632; 87635

== ENCOUNTER 2023-07-18 12:14 | Emergency (ER) | payer OTHER, SELFPAY ==
[2023-07-18 12:22] VITALS: BP 136/86; PULSE 77; RESP 18; TEMP 36.7; O2SAT 100; BMI 27.3
--- NOTE | 2023-07-18 12:37 | XR_ITS ---
FINAL REPORT CLINICAL HISTORY: pain top of L foot, h/o fracture in past COMPARISON: 06/09/2020 FINDINGS: LEFT FOOT Three views of the left foot demonstrate no acute fracture or dislocation. The visualized joint spaces are normally aligned. There is soft tissue edema over the dorsum of the foot. IMPRESSION: Soft tissue edema with no acute bony abnormality. Reviewed, Interpreted and Dictated by Trell Timmons MD Transcribed by Cinthya Martin Authenticated and [facility]
[2023-07-18] MEDS: ACETAMINOPHEN 500MG TAB 1000 MG PO (12:46)
--- NOTE | 2023-07-18 13:03 | PC.NURSE ---
rounded on pt, updated about still waiting on xray results, no needs at this time
[2023-07-18 13:04] VITALS: BP 94/67; PULSE 65; O2SAT 100
[2023-07-18 13:30] VITALS: BP 114/60; PULSE 70; O2SAT 99
[2023-07-18 13:58] VITALS: BP 98/62; PULSE 67; O2SAT 94
--- NOTE | 2023-07-18 14:06 | HMH.EDGENADL ---
Discharge Plan Disposition Patient Disposition: Home, Self-Care Condition: Good Chief Complaint: Extremity Injury, Lower Prescriptions Prescriptions: No Action fluticasone propionate [Flonase Allergy Relief] 50 mcg/actuation spray,suspension 1 spray intranasal DAILY Qty: 16 2RF Rx Instructions: administer into each nostril [id number]-[id number] [Bromfed DM] 2-30-10 mg/5 mL syrup 5 ml PO Q4-6H PRN (Reason: cough) Qty: 118 0RF amoxicillin 500 mg tablet 500 mg PO BID 10 Days Qty: 20 0RF buspirone 15 mg tablet 15 mg PO TID PRN (Reason: anxiety) Qty: 90 3RF cetirizine [Zyrtec] 10 mg tablet 10 mg PO DAILY Qty: 30 2RF lurasidone 20 mg tablet 20 mg PO DAILY Qty: 90 2RF Rx Instructions: must administer with food (at least 350 calories) sertraline 50 mg tablet 50 mg PO DAILY Qty: 90 3RF miconazole nitrate 2 % cream 1 appful vaginal HS 7 Days Qty: 45 0RF Referrals Follow up/Referrals: Frank Bennett APRN [Primary Care Provider] - See instructions Activity Restrictions/Add. Instructions Additional Instructions/Restrictions: You were evaluated in the emergency department today. Take Tylenol and ibuprofen at home as needed for pain. Keep your foot elevated to reduce swelling. Follow-up outpatient with orthopedics if your pain persist. Return to the emergency department for new or worsening symptoms. Clinical Impressions Clinical Impression: Acute pain of left foot, Edema of left foot Instructions Patient Instructions: DI for Foot Sprain, DI for Foot Pain Discharge ED Provider: Mara Martin General Adult HPI General Chief complaint: Extremity Injury, Lower Stated complaint: top of foot pain Time Seen by Provider: 07/18/23 12:29 Mode of Arrival: Ambulatory Source of Information: Patient Limitations: No Limitations Description of Symptoms (Recalled from ER Triage Doc. by RN): Patient reports left foot pain and swelling. Patient reports she thinks she rebroke an old fracture from 3 years go. Patient reports she can bear some weight but it is very painful. History of Present Illness HPI narrative: This patient is a 33-year-old female who reports a history of fracture of her first metatarsal of her left foot 3 years ago and reinjury 1 year ago presented to the emergency department for evaluation with concern for pain. She states that she is not sure what she may have done, but she is now having pain, swelling, and issues with bearing weight on her left foot. She took ibuprofen at home with some relief, but the pain has been persistent. No other concerns noted at this time. Related Data Previous Rx's Medication Instructions Recorded buspirone 15 mg tablet 15 mg PO TID PRN anxiety #90 tabs 10/04/22 fluticasone propionate 50 1 spray intranasal DAILY #16 grams 11/21/22 mcg/actuation nasal spray,suspension (Flonase Allergy Relief) cetirizine 10 mg tablet (Zyrtec) 10 mg PO DAILY #30 tabs 12/26/22 lurasidone 20 mg tablet 20 mg PO DAILY Depression #90 tabs 12/26/22 sertraline 50 mg tablet 50 mg PO DAILY Depression #90 tabs 12/26/22 miconazole nitrate 2 % vaginal 1 appful vaginal HS 7 days #45 05/02/23 cream grams amoxicillin 500 mg tablet 500 mg PO BID 10 days #20 tabs 06/05/23 uzhagarudozglht-jpradupbgcucujh-LW 5 ml PO Q4-6H PRN cough #118 mL 06/05/23 2 mg-30 mg-10 mg/5 mL oral syrup (Bromfed DM) Allergies Allergy/AdvReac Type Severity Reaction Status Date / Time latex Allergy Verified 07/18/23 12:28 [facility] Disclaimer: The information contained in this section may have been updated after the patient was seen, as this information can be updated by other users. Medical History Ankle contusion Anxiety Atypical chest pain Bipolar affect, depressed Bronchitis Cervicalgia Encounter for hepatitis C virus screening test for high risk patient Exposure to COVID-19 virus Family history of diabetes mellitus Impacted cerumen of both ears Insect bite Left shoulder pain Left shoulder tendonitis Nasal septum fracture Obesity (BMI 30.0-34.9) Patient left without being seen Post-COVID chronic cough PTSD (post-traumatic stress disorder) Sinusitis, acute, maxillary Skin sensation disturbance Strep throat Urinary tract infection Viral syndrome Surgical History No significant past surgical history Family History Other Diabetes Social History Smoking Status: Current every day smoker second hand exposure: No alcohol intake: never current occupational status: other Travel in the last 8 weeks: None ROS Obtained: Yes All systems reviewed & no additional complaints except as documented Physical Exam General General appearance: alert and in no apparent distress Head Head exam: atraumatic and normocephalic Eye Eye exam: Present normal appearance, PERRL and EOMI ENT ENT exam: Present normal exam, normal oropharynx, mucous membranes moist and normal external ear exam Neck Neck exam: Present normal inspection, full ROM and trachea midline; Absent tenderness Chest Chest inspection: Present normal inspection and symmetric chest wall rise; Absent tenderness Respiratory Respiratory exam: Present normal lung sounds bilaterally; Absent respiratory distress, wheezes, stridor or accessory muscle use Cardiovascular Cardiovascular exam: Present regular rate and normal rhythm Abdominal Exam Abdominal exam: Present soft; Absent distention, tenderness or guarding Extremities Exam Extremities exam: Present full ROM, tenderness, normal capillary refill, edema and other (Tenderness to palpation of the dorsomedial aspect of the left foot with mild soft tissue edema. No surrounding erythema, warmth, lesions, or other concerns. Intact range of motion. Neurovascularly intact distally.) Back Exam Back exam: Present normal inspection and full ROM; Absent tenderness Neurological Exam Neurological exam: Present alert, oriented X3, CN II-XII intact and normal gait; Absent motor sensory deficit Psychiatric Psychiatric exam: Present normal affect and normal mood Skin Skin exam: Present warm and dry Medical Decision Making Medical Records Medical records reviewed: Yes I reviewed the patient's medical records. Nils Inquiry Pt receiving controlled substance: No Vital Signs: 07/18/23 12:22 07/18/23 13:04 07/18/23 13:30 Temperature 98.1 F Temperature Source Oral Pulse Rate 65 70 Pulse Rate [Right Brachial] 77 Respiratory Rate 18 Blood Pressure 94/67 L 114/60 Blood Pressure [Right Arm] 136/86 Blood Pressure Mean [Right Arm] 102 Blood Pressure Source [Right Arm] Automatic Cuff Blood Pressure Position [Right Arm] Sitting 02 Sat by Pulse Oximetry 100 100 99 Oxygen Delivery Method Room Air Room Air Lab Data Lab results reviewed: Yes I reviewed the patient's lab results. Orders (Tests/Meds): ED MEDICATIONS Discontinued Medications Generic Name Dose Route Start Last Admin Trade Name Anderson PRN Reason Stop Dose Admin Acetaminophen 1,000 mg 07/18/23 12:37 07/18/23 12:46 Acetaminophen 500mg Tab PO 07/18/23 12:38 1,000 mg ONCE ONE Administration ORDERS Category Date Time Status XR foot LT min 3V Stat Exams 07/18/23 12:37 Taken Medical Decision Narrative: In summary, this patient is a 33-year-old female presenting to the Emergency Department for evaluation of left foot pain. Differential diagnoses considered include but are not limited to fracture, contusion, strain/sprain. Ruling out the most morbid conditions drove assessment. On exam, the patient is well-appearing. She has mild soft tissue swelling at the dorsomedial aspect of the left foot without overlying skin changes. Intact range of motion, and neurovascularly intact. Workup included x-rays of left foot. She was given oral Tylenol.. I independently interpreted x-ray prior to the radiologist read and noted no acute fracture. Please see their read for final interpretation. At this time, feel patient most likely has musculoskeletal strain/sprain. Feel that she is appropriate for discharge with instructions for supportive management and close follow-up as an outpatient if her pain persist. She was given strict return precautions and was discharged in stable condition after all questions were answered. Critical Care Critical Care Time Critical Care Time: No
[2023-07-18 14:25] VITALS: BP 104/69; PULSE 75; RESP 18; TEMP 36.7; O2SAT 98
--- NOTE | 2023-07-20 22:37 | PC.NURSE ---
chart accessed for ortho paperwork
== END 2023-07-18 14:27 | disposition home or self-care (01) ==
PROVIDERS: Emergency Provider Emergency Medicine; PCP Nurse Practitioner Family
DX: M79.672 Pain in left foot (principal); R60.9 Edema, unspecified; F17.200 Nicotine dependence, unspecified, uncomplicated
CPT/HCPCS: 73630; 99283

== ENCOUNTER 2023-08-19 19:06 | Outpatient (CLI) | payer OTHER, SELFPAY | END 2023-08-19 23:59 | LOC: LAB.DROPOF 19:07 | PROVIDERS: PCP Student in an Organized Health Care Education/Training Program; Visit Provider Student in an Organized Health Care Education/Training Program | DX: J02.9 Acute pharyngitis, unspecified (principal); R10.9 Unspecified abdominal pain; N30.01 Acute cystitis with hematuria; R05.9 Cough, unspecified; B95.7 Other staphylococcus as the cause of diseases classified elsewhere; Z20.828 Contact with and (suspected) exposure to other viral communicable diseases | CPT/HCPCS: 87086 ==

== ENCOUNTER 2023-12-08 20:05 | Emergency (ER) | payer OTHER, SELFPAY ==
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
[2023-12-08 20:15] VITALS: BP 120/85; PULSE 67; RESP 16; TEMP 36.8; O2SAT 100; BMI 27.9
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
[2023-12-08] MEDS: ACETAMINOPHEN 500MG TAB 1000 MG PO (20:39)
[2023-12-08] MEDS: IBUPROFEN 400 MG TABLET 800 MG PO (20:39)
--- NOTE | 2023-12-08 20:41 | PC.NURSE ---
Patient requested to remove pulse oximetry and blood pressure monitoring at this time.
[2023-12-08 21:23] VITALS: BP 134/72; PULSE 75; RESP 19; TEMP 36.8; O2SAT 98
== END 2023-12-08 21:24 | disposition home or self-care (01) ==
PROVIDERS: Emergency Provider Emergency Medicine; PCP Student in an Organized Health Care Education/Training Program
DX: S60.221A Contusion of right hand, initial encounter (principal); M79.641 Pain in right hand; W22.8XXA Striking against or struck by other objects, initial encounter
CPT/HCPCS: 73130; 99283

== ENCOUNTER 2024-04-13 08:09 | Emergency (ER) | payer SELFPAY ==
[2024-04-13 08:27] VITALS: BP 99/43; PULSE 86; RESP 18; TEMP 36.8; O2SAT 100; BMI 28.5
--- NOTE | 2024-04-13 08:44 | ED_ITS ---
Discharge Plan Disposition Patient Disposition: Home, Self-Care Condition: Good Prescriptions Prescriptions: New polymyxin B sulf-trimethoprim 10,000 unit- 1 mg/mL drops 2 drp ophthalmic (eye) Q6 7 Days Qty: 10 0RF Rx Instructions: apply to right eye while awake; do not exceed 6 doses in 24 hours Referrals Follow up/Referrals: Ara Dawson PA [Primary Care Provider] - See instructions Activity Restrictions/Add. Instructions Additional Instructions/Restrictions: Wash hands before and after applying drops to eye Use eye drops as prescribed Clean matting from eyes with warm water and baby shampoo Follow up with Eye Doctor if no improvement or any worsening of symptoms Clinical Impressions Clinical Impression: Conjunctivitis Instructions Patient Instructions: DI for Conjunctivitis, How to Put in Eye Drops Print Language Print Language: Greenlandic Discharge ED Provider: Vale Rosas [facility] General Stated complaint: swelling and redness to R eye Mode of Arrival: Ambulatory Source of Information: Patient Time Seen by Provider: 04/13/24 08:48 Description of Symptoms (Recalled from Triage Doc. by RN): RIGHT EYE PINK EYE? GREEN DRAINAGE, MATTED THIS MORNING, BURNING HEENT Symptoms (Recalled from RN notes): Yes Resp Symptoms (Recalled from RN notes): No Skin Symptoms (Recalled from RN notes): No MS Symptoms (Recalled from RN notes): No Functional Status (Recalled from RN notes): WNL History of Present Illness Provider Complaint: Patient states that she thinks she may have pink eye, states that she has been having some redness, thick yellowish green drainage, matting and burning like sensation in her eye Denies known injury Denies scratching eye States that she noticed this am felt like it was starting in the other eye also Related Data Previous Rx's ?Medication ?Instructions ?Recorded polymyxin B sulfate 10,000 2 drp ophthalmic (eye) Q6 7 days 04/13/24 unit-trimethoprim 1 mg/mL eye drops #10 mL Allergies Allergy/AdvReac Type Severity Reaction Status Date / Time latex Allergy Verified 08/28/23 10:56 Worker's Comp Is this a Worker's Comp case?: No [facility] Disclaimer: The information contained in this section may have been updated after the patient was seen, as this information can be updated by other users. Medical History Bronchitis Encounter for hepatitis C virus screening test for high risk patient Patient left without being seen Impacted cerumen of both ears Sinusitis, acute, maxillary Urinary tract infection Cervicalgia Post-COVID chronic cough Anxiety Obesity (BMI 30.0-34.9) Family history of diabetes mellitus PTSD (post-traumatic stress disorder) Bipolar affect, depressed Nasal septum fracture Atypical chest pain Exposure to COVID-19 virus Viral syndrome Left shoulder tendonitis Left shoulder pain Skin sensation disturbance Strep throat Insect bite Ankle contusion Surgical History No significant past surgical history Family History Other Diabetes Social History Smoking Status: Unknown if ever smoked second hand exposure: No alcohol intake: never current occupational status: other Travel in the last 8 weeks: None ROS Obtained: Yes All systems reviewed & no additional complaints except as documented and Yes Systems reviewed as appropriate & no additional complaints except as documented Constitutional Constitutional: Reports system reviewed and no additional complaints, except as documented and Reports as per HPI Eyes Eyes: Reports system reviewed and no additional complaints, except as documented, Reports as per HPI, Reports eye discharge and Reports irritation ENT Ears, Nose, Mouth, and Throat: Reports system reviewed and no additional complaints, except as documented and Reports as per HPI Cardiovascular Cardiovascular: Reports system reviewed and no additional complaints, except as documented and Reports as per HPI Respiratory Respiratory: Reports system reviewed and no additional complaints, except as documented and Reports as per HPI Gastrointestinal Gastrointestingal: Reports system reviewed and no additional complaints, except as documented and as per HPI Physical Exam General General appearance: alert and in no apparent distress Eye Eye exam: Present conjunctival redness (right) and discharge (right with matting particles noted in lashes, appears like redness is starting in left eye also) Respiratory Respiratory exam: Present normal lung sounds bilaterally; Absent respiratory distress or wheezes Cardiovascular Cardiovascular exam: Present regular rate, normal rhythm and normal heart sounds Abdominal Exam Abdominal exam: Present soft and normal bowel sounds; Absent distention or tenderness Neurological Exam Neurological exam: Present alert, oriented X3 and normal gait Medical Decision Making Medical Records Screening: Per USPSTF and CDC recommendations, given the prevalence of disease in our region, it is our hospital?s policy to screen for HIV and viral Hepatitis for all patients aged 18 and over and those with ongoing risk factors. Nils Inquiry Pt receiving controlled substance: No Nils was queried for this patient: No Vital Signs: 04/13/24 08:27 Temperature 98.3 F Temperature Source Oral Pulse Rate [Left Radial] 86 Respiratory Rate 18 Blood Pressure [Left Arm] 99/43 L Blood Pressure Mean [Left Arm] 61 02 Sat by Pulse Oximetry 100
[2024-04-13 09:06] VITALS: BP 99/43; PULSE 86; RESP 18; TEMP 36.8
== END 2024-04-13 09:06 | disposition home or self-care (01) ==
PROVIDERS: Emergency Provider Nurse Practitioner; PCP Student in an Organized Health Care Education/Training Program
DX: H10.31 Unspecified acute conjunctivitis, right eye (principal)
CPT/HCPCS: 99213; G0381

== ENCOUNTER 2024-05-11 16:15 | Emergency (ER) | payer SELFPAY ==
[2024-05-11 16:40] VITALS: BP 131/72; PULSE 74; RESP 18; TEMP 36.9; O2SAT 99; BMI 28.3
--- NOTE | 2024-05-11 17:02 | ED_ITS ---
Discharge Plan Disposition Patient Disposition: Home, Self-Care Condition: Good Prescriptions Prescriptions: No Action No Known Home Medications Referrals Follow up/Referrals: Frank Bennett APRN [Primary Care Provider] - See instructions Activity Restrictions/Add. Instructions Additional Instructions/Restrictions: Continue eye drops as prescribed *Monitor Temp, Over the counter Motrin or Tylenol as directed/as needed Tylenol every 4 hours and Motrin every 6 hours (as long as your family doctor has told you that you can take it) for fever or pain. and straight to ER if unable to lower temp less than 101.0 after medication given *Warm salt water gargles may help to soothe the throat *Throat Lozenges? *Warm fluids like tea with honey may help to soothe the throat? *Sleep elevated *Humidifier/Vaporizer *Over the counter Robitussin may help with cough Follow up IMMEDIATELY for new or worsening symptoms or no Noticeable improvement over the next 48-72 hours. 911 for difficulty breathing or swallowing Clinical Impressions Clinical Impression: Viral upper respiratory infection Stand Alone Forms Stand Alone Forms: Work/School Release Instructions Patient Instructions: DI for Viral Upper Respiratory Infection -- Adult Print Language Print Language: Icelandic Discharge ED Provider: Vale Rosas [facility] [place] HPI General Stated complaint: body aches, cough, congestion, sore throat, h/a Mode of Arrival: Ambulatory Source of Information: Patient Limitations: No Limitations Time Seen by Provider: 05/11/24 17:02 Description of Symptoms (Recalled from Triage Doc. 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 and she took a COVID test at work e arlier and it was negative States that family member has RSV States that she started yesterday with body aches, chills, sinus congestion and pressure and body aches States she had [place] eye a few weeks ago and was on drops for it and it got better and today her eye was looking red again so she restarted the drops back Related Data Home Medications ?Medication ?Instructions ?Recorded ?Confirmed No Known Home Medications 05/11/24 05/11/24 Allergies Allergy/AdvReac Type Severity Reaction Status Date / Time latex Allergy Verified 08/28/23 10:56 Worker's Comp Is this a Worker's Comp case?: No [facility] Disclaimer: The information contained in this section may have been updated after the patient was seen, as this information can be updated by other users. Medical History Bronchitis Encounter for hepatitis C virus screening test for high risk patient Patient left without being seen Impacted cerumen of both ears Sinusitis, acute, maxillary Urinary tract infection Cervicalgia Post-COVID chronic cough Anxiety Obesity (BMI 30.0-34.9) Family history of diabetes mellitus PTSD (post-traumatic stress disorder) Bipolar affect, depressed Nasal septum fracture Atypical chest pain Exposure to COVID-19 virus Viral syndrome Left shoulder tendonitis Left shoulder pain Skin sensation disturbance Strep throat Insect bite Ankle contusion Surgical History No significant past surgical history Family History Other Diabetes Social History Smoking Status: Unknown if ever smoked second hand exposure: No alcohol intake: never current occupational status: other Travel in the last 8 weeks: None Have you lived/traveled outside [place] in past 30 days?: No Contact w/someone who lives/traveled outside US past 30 days?: No Exposure to someone with infectious disease in past 14 days?: No Do you have a fever (greater than 100.4 F or 38 C)?: Yes Have you tested positive for COVID-19: No Exposed to someone with COVID-19 in past 14 days?: No Do you have a sore throat?: Yes Do you have a cough?: Yes Do you have any weakness?: No Do you have any diarrhea?: No Are you experiencing any unusual bleeding?: No Do you have any muscle aches/pain?: Yes Do you have any abdominal pain?: No Are you experiencing loss of taste or smell?: No ROS Obtained: Yes All systems reviewed & no additional complaints except as documented and Yes Systems reviewed as appropriate & no additional complaints except as documented Constitutional Constitutional: Reports system reviewed and no additional complaints, except as documented, Reports as per HPI, Reports body ache, Reports chills and Reports headache(s) Eyes Eyes: Reports eye discharge (left) and Reports irritation ENT Ears, Nose, Mouth, and Throat: Reports system reviewed and no additional compl aints, except as documented, Reports as per HPI, Reports headache(s), Reports nasal congestion and Reports nasal discharge Cardiovascular Cardiovascular: Reports system reviewed and no additional complaints, except as documented and Reports as per HPI Respiratory Respiratory: Reports system reviewed and no additional complaints, except as documented and Reports as per HPI Gastrointestinal Gastrointestingal: Reports system reviewed and no additional complaints, except as documented and as per HPI Genitourinary Female Genitourinary: Reports system reviewed and no additional complaints, except as documented and Reports as per HPI Neurologic Neurologic: Reports headache(s) Physical Exam General General appearance: alert and in no apparent distress Eye Eye exam: Present conjunctival redness (left ) and discharge (left) ENT ENT exam: Present mucous membranes moist and TM's normal bilaterally Expanded ENT Exam Nose exam: Absent sinus tenderness Throat exam: Present normal inspection Chest Chest inspection: Present normal inspection and symmetric chest wall rise Respiratory Respiratory exam: Present normal lung sounds bilaterally; Absent respiratory distress or wheezes Cardiovascular Cardiovascular exam: Present regular rate, normal rhythm and normal heart sounds Abdominal Exam Abdominal exam: Present soft and normal bowel sounds; Absent distention or tenderness Neurological Exam Neurological exam: Present alert, oriented X3 and normal gait Medical Decision Making Medical Records Screening: Per USPSTF and CDC recommendations, given the prevalence of disease in our region, it is our hospital?s policy to screen for HIV and viral Hepatitis for all patients aged 18 and over and those with ongoing risk factors. Nils Inquiry Pt receiving controlled substance: No Nils was queried for this patient: No Vital Signs: 05/11/24 16:40 Temperature 98.5 F Temperature Source Oral Pulse Rate [Left Brachial] 74 Respiratory Rate 18 Blood Pressure [Left Arm] 131/72 Blood Pressure Mean [Left Arm] 91 Blood Pressure Source [Left Arm] Automatic Cuff Blood Pressure Position [Left Arm] Sitting 02 Sat by Pulse Oximetry 99 Oxygen Delivery Method Room Air Lab Data Lab results reviewed: Yes I reviewed the patient's lab results.
[2024-05-11 17:03] LABS: UTC Influenza A Antigen Negative (Negative)
[2024-05-11 17:04] LABS: UTC Influenza B Antigen Negative (Negative)
[2024-05-11 17:17] VITALS: BP 131/72; PULSE 74; RESP 18; TEMP 36.9; O2SAT 99
== END 2024-05-11 17:19 | disposition home or self-care (01) ==
PROVIDERS: Emergency Provider Nurse Practitioner; PCP Nurse Practitioner Family
DX: B34.9 Viral infection, unspecified (principal)
CPT/HCPCS: 87804; 99213; G0381

== ENCOUNTER 2025-03-28 15:41 | Emergency (ER) | payer SELFPAY ==
[2025-03-28] VITALS (8 sets, daily range): BP systolic 108–128; BP diastolic 71–87; PULSE 66–83; RESP 16–18; TEMP 36.6–36.8; O2SAT 98–100; BMI 28.3
--- NOTE | 2025-03-28 15:58 | XR_ITS ---
PROCEDURE INFORMATION: Exam: XR Chest Exam date and time: 03/28/2025 4:39 PM Age: 34 years old Clinical indication: Pain; Other: Chest tight TECHNIQUE: Imaging protocol: Radiologic exam of the chest. Views: 2 views. COMPARISON: CR XR CHEST PORTABLE 01/13/2023 9:15 PM FINDINGS: Lungs: Unremarkable. No consolidation. Pleural spaces: Unremarkable. No gross pleural effusion. No pneumothorax. Heart/Mediastinum: Unremarkable. No cardiomegaly. Bones/joints: Unremarkable. IMPRESSION: No acute findings.
--- NOTE | 2025-03-28 15:58 | ECG_ITS ---
APPROVED REPORT Exam: Resting ECG HR:68 bpm ECG Measurements Heart Rate 68 AXES IL 169 P 69 QRSd 103 QRS 78 QT 378 T 60 QTc 395 Conclusion SINUS RHYTHM INCOMPLETE RIGHT BUNDLE BRANCH BLOCK [90+ ms QRS DURATION, TERMINAL R IN V1/V2, 40+ ms S IN I/aVL/V4/V5/V6] BORDERLINE ECG UNCONFIRMED REPORT Normal sinus rhythm. No ST elevation or depression. Electronically signed by : TELLY SOUZA, 03/29/2025 22:17:17
[2025-03-28 16:28] LABS: Hematocrit 30.3 % (37.0-47.0); Hemoglobin 9.6 g/dL (12.2-16.2); Immature Granulocytes % 0.2 %; Mean Corpuscular HGB Conc 31.7 g/dL (31.8-35.4); Mean Corpuscular Hemoglobin 23.8 pg (27.0-31.2); Mean Corpuscular Volume 75.0 fl (81-99); Nucleated Red Blood Cells % 0 %; Platelet Count 484 K/mm3 (142-424); Red Blood Count 4.04 M/mm3 (4.20-5.40); Red Cell Distribution Width-SD 42.1 fL; White Blood Count 6.4 K/mm3 (4.8-10.8)
[2025-03-28] MEDS: 0.9 % SODIUM CHLORIDE 1000ML 1,000 ML 999 ML IV (16:32)
[2025-03-28 16:38] LABS: Urine Pregnancy, HCG Qual. Negative (Negative)
[2025-03-28 16:44] LABS: Alanine Aminotransferase 21 U/L (12-78); Albumin Level 4.1 g/dl (3.5-5.0); Albumin/Globulin Ratio 1.1 (1.1-1.8); Alkaline Phosphatase 58 U/L (38-126); Anion Gap 10.7 mEq/L (5-15); Aspartate Amino Transferase 23 U/L (14-36); Bilirubin,Total 0.4 mg/dl (0.2-1.3); Blood Urea Nitrogen 13 mg/dl (7-17); Calcium 9.7 mg/dl (8.4-10.2); Carbon Dioxide 26 mmol/L (22.0-30.0); Chloride 101 mmol/L (98-107); Creatinine Clearance Estimated 120 mL/min (50-200); Creatinine,Serum 0.70 mg/dl (0.52-1.04); Estimated Glomerular Filt Rate 95 ml/min (>60); GFR (African American) 115 ML/MIN (>60); Globulin 3.9 g/dL (1.3-3.2); Glucose 99 mg/dl (74-100); Lipase 216 U/L (23-300); Potassium 3.7 mmoL/L (3.5-5.1); Sodium 134 mmol/L (136-145); Total Protein,Serum 8.0 g/dl (6.3-8.2)
[2025-03-28] MEDS: BELLADONNA ALKALOIDS 60 ML ML PO (16:44)
[2025-03-28 17:02] LABS: Troponin I < 0.01 ng/ml (0.00-0.034)
--- NOTE | 2025-03-28 17:03 | HMH.EDGENADL ---
Discharge Plan Disposition Chief Complaint: PAIN Prescriptions Prescriptions: No Action amoxicillin 500 mg capsule 500 mg PO BID Qty: 20 0RF No Known Home Medications Referrals Follow up/Referrals: Frank Bennett APRN [Primary Care Provider, Family Practice] - See instructions Print Language Print Language: Indonesian Discharge ED Provider: Fernando Zazueta Adult HPI General Chief complaint: PAIN Stated complaint: pain in sternum area all day Time Seen by Provider: 03/28/25 15:45 Mode of Arrival: Ambulatory Source of Information: Patient Description of Symptoms (Recalled from ER Triage Doc. by RN): Pt states she started having sternal pain/ a gallbladder attack this morning at 0430. Pt does have a history of episodes like this, but states the pain is much worse today. Pt c/o pain when trying to eat, states the food feels like its immediately stuck and hurts. Related Data Home Medications ?Medication ?Instructions ?Recorded ?Confirmed No Known Home Medications 05/11/24 02/15/25 Previous Rx's ?Medication ?Instructions ?Recorded amoxicillin 500 mg capsule 500 mg PO BID #20 caps 02/15/25 Allergies Allergy/AdvReac Type Severity Reaction Status Date / Time latex Allergy Verified 08/28/23 10:56 [facility] Disclaimer: The information contained in this section may have been updated after the patient was seen, as this information can be updated by other users. Medical History Strep throat Bronchitis Encounter for hepatitis C virus screening test for high risk patient Patient left without being seen Impacted cerumen of both ears Sinusitis, acute, maxillary Urinary tract infection Cervicalgia Post-COVID chronic cough Anxiety Obesity (BMI 30.0-34.9) Family history of diabetes mellitus PTSD (post-traumatic stress disorder) Bipolar affect, depressed Nasal septum fracture Atypical chest pain Exposure to COVID-19 virus Viral syndrome Left shoulder tendonitis Left shoulder pain Skin sensation disturbance Strep throat Insect bite Ankle contusion Surgical History No significant past surgical history Family History Other Diabetes Social History Smoking Status: Current every day smoker second hand exposure: No alcohol intake: never current occupational status: other Travel in the last 8 weeks?: None Have you lived/traveled outside [place] in past 30 days?: No Contact w/someone who lives/traveled outside US past 30 days?: No Exposure to someone with infectious disease in past 14 days?: No Do you have a fever (greater than 100.4 F or 38 C)?: No Have you tested positive for COVID-19?: No Exposed to someone with COVID-19 in past 14 days?: No Do you have a sore throat?: No Do you have a cough?: No Do you have any weakness?: No Do you have any diarrhea?: No Are you experiencing any unusual bleeding?: No Do you have any muscle aches/pain?: No Do you have any abdominal pain?: No Are you experiencing loss of taste or smell?: No Other Medical History Have you received the Flu Vaccine for this season: No Have you received the Pneumonia Vaccine: No Medical Decision Making Medical Records Screening: Per USPSTF and CDC recommendations, given the prevalence of disease in our region, it is our hospital?s policy to screen for HIV and viral Hepatitis for all patients aged 18 and over and those with ongoing risk factors. Vital Signs: 03/28/25 15:43 03/28/25 15:54 03/28/25 16:00 Temperature 97.8 F Temperature Source Oral Pulse Rate 71 66 Pulse Rate [Right] 80 Respiratory Rate 18 Blood Pressure 115/71 Blood Pressure [Right Arm] 128/87 Blood Pressure Mean [Right Arm] 100 Blood Pressure Source [Right Arm] Automatic Cuff Blood Pressure Position [Right Arm] Sitting 02 Sat by Pulse Oximetry 98 100 100 Oxygen Delivery Method Room Air Room Air Room Air 03/28/25 16:30 Temperature Temperature Source Pulse Rate 83 Pulse Rate [Right] Respiratory Rate Blood Pressure 113/84 Blood Pressure [Right Arm] Blood Pressure Mean [Right Arm] Blood Pressure Source [Right Arm] Blood Pressure Position [Right Arm] 02 Sat by Pulse Oximetry 100 Oxygen Delivery Method Room Air Lab Data Lab Results 03/28/25 16:20: WBC 6.4, RBC 4.04 L, Hgb 9.6 L, Hct 30.3 L, MCV 75.0 L, MCH 23.8 L, MCHC 31.7 L, RDW 15.4, Plt Count 484 H, MPV 9.9, Neut % (Auto) 52.5, Lymph % (Auto) 32.4, [place] % (Auto) 7.6, Eos % (Auto) 6.8, Baso % (Auto) 0.5, Neut # (Auto) 3.3, Lymph # (Auto) 2.1, [place] # (Auto) 0.5, Eos # (Auto) 0.4, Baso # (Auto) 0.0, Sodium 134 L, Potassium 3.7, Chloride 101, Carbon Dioxide 26, Anion Gap 10.7, BUN 13, Creatinine 0.70, Estimated Creat Clear 120, Estimated GFR 95, Est GFR ( Amer) 115, Glucose 99, Calcium 9.7, Total Bilirubin 0.4, AST 23, ALT 21, Alkaline Phosphatase 58, Troponin I < 0.01, Total Protein 8.0, Albumin 4.1, Globulin 3.9 H, Albumin/Globulin Ratio 1.1, Lipase 216, Urine HCG, Qual Negative 03/28/25 16:20 03/28/25 16:20 Orders (Tests/Meds): ED MEDICATIONS Discontinued Medications Generic Name Dose Route Start Last Admin Trade Name Freq PRN Reason Stop Dose Admin Belladonna Alkaloids 60 ml 03/28/25 16:35 03/28/25 16:44 Belladonna Alkaloids 60 Ml Ml PO 03/28/25 16:36 60 ml ONCE ONE Administration Sodium Chloride 1,000 mls @ 999 mls/hr 03/28/25 15:58 03/28/25 16:32 Sod Chlor 0.9% 1000ml Bag IV 03/28/25 16:58 999 mls/hr .Q1H1M ONE Administration ORDERS Category Date Time Status Chest XR 2 view (NOT portable) [XR chest 2V] Stat Exams 03/28/25 15:58 Completed POCUS Point of Care (ER Only) Stat Exams 03/28/25 16:22 Completed CBC w/Auto Diff [Complete Blood Count Auto Diff] Stat Lab 03/28/25 16:20 Completed CMP [Comprehensive Metabolic Panel] Stat Lab 03/28/25 16:20 Completed Lipase Stat Lab 03/28/25 16:20 Completed Trop I [Troponin I] Stat Lab 03/28/25 16:20 Completed Troponin I Q3H Lab 03/28/25 19:00 Ordered Troponin I Q3H Lab 03/28/25 22:00 Ordered Urine , HCG Qual. Stat Lab 03/28/25 16:20 Completed 12-lead EKG Request [ECG Request] Stat Y 03/28/25 15:58 Ordered ECG Data Tracing #1: I reviewed this ECG and interpreted as documented below: Normal sinus rhythm. No ST elevation or depression. QTc normal at 395 Procedures Limited Ultrasound Indication:: Limited RUQ ultrasound Indication: Abdominal pain, nausea and vomiting Identified structures: -Gallbladder -Gallbladder wall -Common bile duct -Liver Findings: Sonographic Mao sign: Absent Gallstones: Absent Sludge: Absent Pericholecystic fluid: Absent Maximal GB wall thickness (mm): Normal is </= 3mm Normal Common bile duct width (mm): Normal is </= 6mm Normal Gallbladder width (cm): Normal is < 4cm Normal Gallbladder length (cm): Normal is < 10cm Normal Impression: -Normal gallbladder -Cholelithiasis -Cholecystitis -Choledocholithiasis Images were saved to permanent archive The study was technically adequate CPT 01871-02 This study was performed by me, and I personally interpreted all images/videos. Based on my clinical judgement, these images were adequate and did not necessitate further imaging.
--- NOTE | 2025-03-28 17:43 | ED_ITS ---
<Statement entered by Fernando Zazueta MD - 03/28/25 21:19> I was consulted by the SADIE, and we discussed the complexity of the problems being addressed. I approve the treatment and management plan for this patient's care in the emergency department, thus performing a substantive portion of the medical decision making. Fernando Zazueta MD Discharge Plan Disposition Patient Disposition: Home, Self-Care Condition: Good Prescriptions Prescriptions: New omeprazole 20 mg capsule,delayed release(DR/EC) 20 mg PO DAILY 42 Days Qty: 42 0RF No Action amoxicillin 500 mg capsule 500 mg PO BID Qty: 20 0RF Referrals Follow up/Referrals: Frank Bennett APRN [Primary Care Provider, Family Practice] - See instructions Activity Restrictions/Add. Instructions Additional Instructions/Restrictions: You were seen for upper abdominal pain. I would recommend follow up with a PCP to discuss further workup. I will start omeprazole. Return to the ER for worsening symptoms. Clinical Impressions Clinical Impression: Acute epigastric pain Instructions Patient Instructions: Acute Abdominal Pain Print Language Print Language: Ukrainian Discharge ED Provider: Fernando Zazueta General Adult HPI General Chief complaint: PAIN Stated complaint: pain in sternum area all day Time Seen by Provider: 03/28/25 15:45 Mode of Arrival: Ambulatory Source of Information: Patient Description of Symptoms (Recalled from ER Triage Doc. by RN): Pt states she started having sternal pain/ a gallbladder attack this morning at 0430. Pt does have a history of episodes like this, but states the pain is much worse today. Pt c/o pain when trying to eat, states the food feels like its immediately stuck and hurts. History of Present Illness HPI narrative: Patient presents with epigastric pain radiating up into the sternal area. Patient reports a history of gallbladder issues in 2012. She was told that her gallbladder was not functioning well. She reports she has difficulty swallowing. Her pain is described as tightness. Denies any fevers or vomiting. She reports her pain is worse with eating and laying flat. Pain has been ongoing for several months. Today it started at 0430. complaint: epigastric pain Onset (ago): month(s) Radiation: non-radiation Severity: moderate Quality: other (tightness ) Consistency: intermittent Relieving factors: none Exacerbating factors: eating Associated symptoms: negative fever/chills or nausea/vomiting Treatments prior to arrival: none Related Data Previous Rx's ?Medication ?Instructions ?Recorded amoxicillin 500 mg capsule 500 mg PO BID #20 caps 01/26 07/21 omeprazole 20 mg capsule,delayed 20 mg PO DAILY 6 week s #42 caps 03/28/25 release Allergies Allergy/AdvReac Type Severity Reaction Status Date / Time latex Allergy Verified 08/28/23 10:56 [facility] Disclaimer: The information contained in this section may have been updated after the patient was seen, as this information can be updated by other users. Medical History Strep throat Bronchitis Encounter for hepatitis C virus screening test for high risk patient Patient left without being seen Impacted cerumen of both ears Sinusitis, acute, maxillary Urinary tract infection Cervicalgia Post-COVID chronic cough Anxiety Obesity (BMI 30.0-34.9) Family history of diabetes mellitus PTSD (post-traumatic stress disorder) Bipolar affect, depressed Nasal septum fracture Atypical chest pain Exposure to COVID-19 virus Viral syndrome Left shoulder tendonitis Left shoulder pain Skin sensation disturbance Strep throat Insect bite Ankle contusion Surgical History No significant past surgical history Family History Other Diabetes Social History Smoking Status: Current every day smoker second hand exposure: No alcohol intake: never current occupational status: other Travel in the last 8 weeks?: None Have you lived/traveled outside US in past 30 days?: No Contact w/someone who lives/traveled outside US past 30 days?: No Exposure to someone with infectious disease in past 14 days?: No Do you have a fever (greater than 100.4 F or 38 C)?: No Have you tested positive for COVID-19?: No Exposed to someone with COVID-19 in past 14 days?: No Do you have a sore throat?: No Do you have a cough?: No Do you have any weakness?: No Do you have any diarrhea?: No Are you experiencing any unusual bleeding?: No Do you have any muscle aches/pain?: No Do you have any abdominal pain?: No Are you experiencing loss of taste or smell?: No Other Medical History Have you received the Flu Vaccine for this season: No Have you received the Pneumonia Vaccine: No ROS Obtained: Yes Systems reviewed as appropriate & no additional complaints except as documented Physical Exam General General appearance: alert and in no apparent distress Head Head exam: atraumatic and normocephalic Eye Eye exam: Present normal appearance and EOMI Chest Chest inspection: Present symmetric chest wall rise Respiratory Respiratory exam: Present normal lung sounds bilaterally; Absent wheezes or stridor Cardiovascular Cardiovascular exam: Present regular rate and normal rhythm; Absent systolic murmur Abdominal Exam Abdominal exam: Present soft and tenderness (epigastric, slight RUQ ); Absent distention Extremities Exam Extremities exam: Present full ROM Neurological Exam Neurological exam: Present alert and oriented X3 Psychiatric Psychiatric exam: Present normal affect and normal mood Skin Skin exam: Present warm, dry and intact Medical Decision Making Medical Records Screening: Per USPSTF and CDC recommendations, given the prevalence of disease in our region, it is our hospital?s policy to screen for HIV and viral Hepatitis for all patients aged 18 and over and those with ongoing risk factors. Nils Inquiry Pt receiving controlled substance: No Vital Signs: 03/28/25 15:43 03/28/25 15:54 03/28/25 16:00 Temperature 97.8 F Temperature Source Oral Pulse Rate 71 66 Pulse Rate [Right] 80 Respiratory Rate 18 Blood Pressure 115/71 Blood Pressure [Right Arm] 128/87 Blood Pressure Mean [Right Arm] 100 Blood Pressure Source [Right Arm] Automatic Cuff Blood Pressure Position [Right Arm] Sitting 02 Sat by Pulse Oximetry 98 100 100 Oxygen Delivery Method Room Air Room Air Room Air 03/28/25 16:30 03/28/25 17:00 03/28/25 17:30 Temperature Temperature Source Pulse Rate 83 66 66 Pulse Rate [Right] Respiratory Rate Blood Pressure 113/84 121/82 113/73 Blood Pressure [Right Arm] Blood Pressure Mean [Right Arm] Blood Pressure Source [Right Arm] Blood Pressure Position [Right Arm] 02 Sat by Pulse Oximetry 100 100 100 Oxygen Delivery Method Room Air Room Air Room Air 03/28/25 18:00 Temperature Temperature Source Pulse Rate 70 Pulse Rate [Right] Respiratory Rate Blood Pressure 108/77 L Blood Pressure [Right Arm] Blood Pressure Mean [Right Arm] Blood Pressure Source [Right Arm] Blood Pressure Position [Right Arm] 02 Sat by Pulse Oximetry 99 Oxygen Delivery Method Room Air Lab Data Lab Results 03/28/25 16:20: WBC 6.4, RBC 4.04 L, Hgb 9.6 L, Hct 30.3 L, MCV 75.0 L, MCH 23.8 L, MCHC 31.7 L, RDW 15.4, Plt Count 484 H, MPV 9.9, Neut % (Auto) 52.5, Lymph % (Auto) 32.4, [place] % (Auto) 7.6, Eos % (Auto) 6.8, Baso % (Auto) 0.5, Neut # (Auto) 3.3, Lymph # (Auto) 2.1, [place] # (Auto) 0.5, Eos # (Auto) 0.4, Baso # (Auto) 0.0, Sodium 134 L, Potassium 3.7, Chloride 101, Carbon Dioxide 26, Anion Gap 10.7, BUN 13, Creatinine 0.70, Estimated Creat Clear 120, Estimated GFR 95, Est GFR ( Amer) 115, Glucose 99, Calcium 9.7, Total Bilirubin 0.4, AST 23, ALT 21, Alkaline Phosphatase 58, Troponin I < 0.01, Total Protein 8.0, Albumin 4.1, Globulin 3.9 H, Albumin/Globulin Ratio 1.1, Lipase 216, Urine HCG, Qual Negative 03/28/25 16:20 03/28/25 16:20 Orders (Tests/Meds): ED MEDICATIONS Discontinued Medications Generic Name Dose Route Start Last Admin Trade Name Freq PRN Reason Stop Dose Admin Belladonna Alkaloids 60 ml 03/28/25 16:35 03/28/25 16:44 Belladonna Alkaloids 60 Ml Ml PO 03/28/25 16:36 60 ml ONCE ONE Administration Sodium Chloride 1,000 mls @ 999 mls/hr 03/28/25 15:58 03/28/25 16:32 Sod Chlor 0.9% 1000ml Bag IV 03/28/25 16:58 999 mls/hr .Q1H1M ONE Administration ORDERS Category Date Time Status Chest XR 2 view (NOT portable) [XR chest 2V] Stat Exams 03/28/25 15:58 Completed POCUS Point of Care (ER Only) Stat Exams 03/28/25 16:22 Completed CBC w/Auto Diff [Complete Blood Count Auto Diff] Stat Lab 03/28/25 16:20 Completed CMP [Comprehensive Metabolic Panel] Stat Lab 03/28/25 16:20 Completed Lipase Stat Lab 03/28/25 16:20 Completed Trop I [Troponin I] Stat Lab 03/28/25 16:20 Completed Troponin I Q3H Lab 03/28/25 19:00 Ordered Troponin I Q3H Lab 03/28/25 22:00 Ordered Urine , HCG Qual. Stat Lab 03/28/25 16:20 Completed 12-lead EKG Request [ECG Request] Stat Y 03/28/25 15:58 Ordered Medical Decision Narrative: In summary patient is a 34-year-old who presents the emergency department for evaluation of epigastric. Patient is hemodynamically stable upon arrival, afebrile. Mild epigastric and right upper quadrant tenderness on. Differential diagnosis includes gallbladder disease including cholelithiasis, cholecystitis, pancreatitis, GERD, gastritis, ACS, pneumonia. Initial workup will be conducted with hematologic labs, EKG, chest x-ray, lipase, treat. Initial inventions include GI. Initial workup reviewed by me unremarkable. Upon repeat evaluation patient had resolution of symptoms with GI. Given this patient is appropriate for discharge home to follow-up with PCP. Will start omeprazole. Given return precautions. Advised to discuss anemia with PCP as well, no significant change for several years. Critical Care Critical Care Time Critical Care Time: No
== END 2025-03-28 18:23 | disposition home or self-care (01) ==
PROVIDERS: Physician Assistant; Emergency Provider Student in an Organized Health Care Education/Training Program; PCP Nurse Practitioner Family
DX: R10.13 Epigastric pain (principal); F17.210 Nicotine dependence, cigarettes, uncomplicated
CPT/HCPCS: 71046; 80053; 81025; 83690; 84484; 85025; 93005; 96360; 99284; J7030